=== PATIENT | female | born 1970 | race African-American/Black ===

== ENCOUNTER 2016-10-01 00:11 | Emergency (ER) | payer MEDICAID, OTHER ==
[~2016-10-01] VITALS: Ht 175.3 cm; Wt 98.0 kg
[~2016-10-01 00:11] MED LIST: AMLO-511 PO; DIVA500T52 PO
[2016-10-01] MEDS ORDERED: DiphenhydrAMINE HCL 25 MG CAPSULE PO ONE (03:00)
[2016-10-01] MEDS ORDERED: GuaiFENesin [SUGAR-FREE] 200 MG/10 ML SOLUTION UDCUP PO ONE (03:00)
[2016-10-01] MEDS ORDERED: CEPHALEXIN MONOHYDRATE 500 MG CAPSULE PO ONE (03:00)
[2016-10-01 03:18] VITALS: BP 118/78
== END 2016-10-01 03:20 | disposition home or self-care (01) ==
LOC: EMS 00:14
DX: J06.9 Acute upper respiratory infection, unspecified (principal); J40 Bronchitis, not specified as acute or chronic; F14.10 Cocaine abuse, uncomplicated; I10 Essential (primary) hypertension; F12.90 Cannabis use, unspecified, uncomplicated; F11.90 Opioid use, unspecified, uncomplicated; F19.90 Other psychoactive substance use, unspecified, uncomplicated
CPT/HCPCS: 99284

== ENCOUNTER 2016-11-13 21:03 | Inpatient (IN) | payer MEDICAID, OTHER ==
[~2016-11-13] VITALS: Ht 175.3 cm; Wt 101.6 kg
[2016-11-13] MEDS ORDERED: CLON.5 PO (21:07)
[2016-11-13] MEDS ORDERED: FLUO-191 PO (21:07)
[2016-11-13] MEDS ORDERED: CARB100 PO (21:07)
[2016-11-13] MEDS ORDERED: TRAZ-144 PO (21:07)
[2016-11-13] MEDS ORDERED: ARIP10TA14 PO (21:07)
[2016-11-13 21:32] LABS: BASOPHILS % (AUTO) 0.8 % (0.0-2.0); EOSINOPHILS % (AUTO) 2.2 % (1.0-6.0); HEMATOCRIT 41.3 % (36-46); HEMOGLOBIN 14.2 g/dL (12.0-16.0); LYMPHOCYTES # (AUTO) 2.2 K/uL (1.0-4.8); LYMPHOCYTES % (AUTO) 36.7 % (22.0-44.0); MEAN CORPUSCULAR HEMOGLOBIN 31.2 pg (26.0-34.0); MEAN CORPUSCULAR HGB CONC 34.2 G/dL (31.0-37.0); MEAN CORPUSCULAR VOLUME 91 fL (80-100); MONOCYTES # (AUTO) 0.5 K/uL (0.1-1.0); MONOCYTES % (AUTO) 9.1 % (2.0-9.0); NEUTROPHILS % (AUTO) 51.2 % (40.0-70.0); PLATELET COUNT (AUTO) 197 K/uL (150-450); RED BLOOD CELL COUNT(AUTO) 4.54 MIL/uL (4.00-5.20); RED CELL DISTRIBUTION WIDTH 12.8 % (11.5-14.5); WHITE BLOOD COUNT (AUTO) 5.9 K/uL (4.5-11.0)
[2016-11-13 21:37] LABS: ANION GAP 11 mmol/L (8-16); CALCIUM, TOTAL 9.3 mg/dL (8.8-10.5); CARBON DIOXIDE 27 mmol/L (22-29); CHLORIDE 102 mmol/L (98-107); CREATININE 0.86 mg/dL (0.60-1.30); GLOMERULAR FILTR. RATE CALC > 60 mL/min (>60); POTASSIUM 3.9 mmol/L (3.5-5.1); SODIUM SERUM 140 mmol/L (136-145); UREA NITROGEN, BLOOD 13 mg/dL (7-18)
[2016-11-13 21:43] LABS: ALANINE AMINOTRANSFERASE 42 U/L (12-78); ALBUMIN 4.3 g/dL (3.4-5.0); ASPARTATE AMINOTRANSFERASE 38 U/L (15-37); BILIRUBIN,TOTAL 0.8 mg/dL (0.1-1.0); TOTAL PROTEIN, SERUM 8.6 g/dL (6.4-8.2)
[2016-11-14] MEDS ORDERED: ClonazePAM 1 MG TABLET PO ONE (00:30)
[2016-11-14] MEDS ORDERED: QUEtiapine FUMARATE 100 MG TABLET PO ONE (00:30)
[2016-11-14] MEDS ORDERED: HALOPERIDOL 5 MG TABLET PO PRN (00:45)
[2016-11-14] MEDS ORDERED: HALOPERIDOL LACTATE 5 MG/ML VIAL IM ONE (02:30)
[2016-11-14] MEDS ORDERED: LORazepam 2 MG/ML VIAL IM ONE (02:30)
[2016-11-14] MEDS ORDERED: DiphenhydrAMINE HCL 50 MG/ML VIAL IM ONE (02:30)
[2016-11-14 07:50] VITALS: BP 120/99
[2016-11-14 08:18] VITALS: BP 125/97
[2016-11-14] MEDS ORDERED: ALBUTEROL SULFATE HFA 90 MCG/PUFF 8 GM INHALER IH PRN (09:00)
[2016-11-14] MEDS ORDERED: BENZOCAINE/MENTHOL LOZENGE [8 LOZENGES/PACKET] MM PRN (09:00)
[2016-11-14] MEDS ORDERED: IBUPROFEN 600 MG TABLET PO PRN (09:00)
[2016-11-14] MEDS ORDERED: MAG HYDROX/AL HYDROX/SIMETH ES 30 ML SUSPENSION UDCUP PO PRN ×2 (09:00→11:45)
[2016-11-14] MEDS ORDERED: CloNIDine HCL 0.1 MG TABLET PO PRN (09:00)
[2016-11-14] MEDS ORDERED: BACITRACIN 28.4 GM OINTMENT TP PRN (09:00)
[2016-11-14] MEDS ORDERED: LOPERAMIDE HCL 2 MG CAPSULE PO PRN ×2 (09:00→11:45)
[2016-11-14] MEDS ORDERED: CarBAMazepine 100 MG CHEWABLE TABLET PO SCH (09:00)
[2016-11-14] MEDS ORDERED: ACETAMINOPHEN 325 MG TABLET PO PRN ×2 (09:00→11:45)
[2016-11-14] MEDS ORDERED: MAGNESIUM HYDROXIDE SUSPENSION 30 ML UDCUP PO PRN ×2 (09:00→11:45)
[2016-11-14] MEDS ORDERED: ONDANSETRON HCL 4 MG TABLET PO PRN (09:00)
[2016-11-14] MEDS ORDERED: PETROLATUM,WHITE 71 GM JELLY TP PRN (09:00)
[2016-11-14] MEDS: MULTIVITAMINS WITH MINERALS, THERAPEUTIC TABLET PO SCH (09:14)
[2016-11-14] MEDS ORDERED: TUBERCULIN, PURIFIED PROTEIN DERIVATIVE 5 TU/0.1 ML SYG ID ONE (11:45)
[2016-11-14] MEDS ORDERED: GuaiFENesin/D-METHORPHAN [SUGAR-FREE] 200-20MG/10 ML SYRUP UDCUP PO PRN (11:45)
[2016-11-14] MEDS ORDERED: PROMETHAZINE HCL 25 MG TABLET PO PRN (11:45)
[2016-11-14] MEDS: GABAPENTIN 300 MG CAPSULE PO SCH ×3 (13:00→20:27)
[2016-11-14 16:17] VITALS: BP 135/75
[2016-11-14] MEDS: THIAMINE HCL 100 MG TABLET PO SCH (16:46)
[2016-11-14] MEDS: CarBAMazepine 200 MG TABLET PO SCH (16:46)
[2016-11-14] MEDS: LORazepam 2 MG TABLET PO PRN (16:46)
[2016-11-14] MEDS: HydrOXYzine PAMOATE 50 MG CAPSULE PO PRN (18:18)
[2016-11-14 18:58] VITALS: BP 133/70
[2016-11-14] MEDS: ARIPiprazole 15 MG TABLET PO SCH (20:27)
[2016-11-14] MEDS: ZOLPIDEM TARTRATE 10 MG TABLET PO PRN (21:09)
[2016-11-15 00:35] VITALS: BP 130/81
[2016-11-15] MEDS: LORazepam 2 MG TABLET PO PRN ×3 (00:38→16:14)
[2016-11-15] MEDS: HydrOXYzine PAMOATE 50 MG CAPSULE PO PRN (08:07)
[2016-11-15] MEDS: GABAPENTIN 300 MG CAPSULE PO SCH ×4 (08:07→20:24)
[2016-11-15] MEDS: CarBAMazepine 200 MG TABLET PO SCH ×2 (08:07→16:14)
[2016-11-15] MEDS: THIAMINE HCL 100 MG TABLET PO SCH ×2 (08:07→16:14)
[2016-11-15] MEDS: FLUoxetine HCL 20 MG CAPSULE PO SCH (08:07)
[2016-11-15] MEDS: FOLIC ACID 1 MG TABLET PO SCH (08:07)
[2016-11-15] MEDS: MULTIVITAMINS WITH MINERALS, THERAPEUTIC TABLET PO SCH (08:07)
[2016-11-15] MEDS ORDERED: MULTIVITAMINS WITH MINERALS, THERAPEUTIC TABLET PO SCH (09:00)
[2016-11-15 10:45] VITALS: BP 128/70
[2016-11-15 16:21] VITALS: BP 112/63
[2016-11-15] MEDS: ARIPiprazole 15 MG TABLET PO SCH (20:24)
[2016-11-16 08:19] VITALS: BP 132/71
[2016-11-16] MEDS: FLUoxetine HCL 20 MG CAPSULE PO SCH (08:44)
[2016-11-16] MEDS: GABAPENTIN 300 MG CAPSULE PO SCH ×4 (08:44→20:04)
[2016-11-16] MEDS: HydrOXYzine PAMOATE 50 MG CAPSULE PO PRN (08:44)
[2016-11-16] MEDS: MULTIVITAMINS WITH MINERALS, THERAPEUTIC TABLET PO SCH (08:44)
[2016-11-16] MEDS: CarBAMazepine 200 MG TABLET PO SCH ×2 (08:44→16:18)
[2016-11-16] MEDS: FOLIC ACID 1 MG TABLET PO SCH (08:44)
[2016-11-16] MEDS: THIAMINE HCL 100 MG TABLET PO SCH ×2 (08:45→16:18)
[2016-11-16] MEDS: LORazepam 2 MG TABLET PO PRN (16:19)
[2016-11-16 16:22] VITALS: BP 124/63
[2016-11-16] MEDS: ARIPiprazole 15 MG TABLET PO SCH (20:04)
[2016-11-16] MEDS: ZOLPIDEM TARTRATE 10 MG TABLET PO PRN (21:06)
[2016-11-17 08:32] VITALS: BP 132/77
[2016-11-17] MEDS: LORazepam 2 MG TABLET PO PRN (09:35)
[2016-11-17] MEDS: GABAPENTIN 300 MG CAPSULE PO SCH ×2 (09:35→13:09)
[2016-11-17] MEDS: MULTIVITAMINS WITH MINERALS, THERAPEUTIC TABLET PO SCH (09:35)
[2016-11-17] MEDS: THIAMINE HCL 100 MG TABLET PO SCH (09:36)
[2016-11-17] MEDS: FOLIC ACID 1 MG TABLET PO SCH (09:36)
[2016-11-17] MEDS: CarBAMazepine 200 MG TABLET PO SCH (09:36)
[2016-11-17] MEDS: FLUoxetine HCL 20 MG CAPSULE PO SCH (09:36)
[2016-11-17] MEDS ORDERED: CARB200T6 PO ×2 (14:35→15:01)
[2016-11-17] MEDS ORDERED: ARIP15TA3 PO ×2 (14:35→15:01)
[2016-11-17] MEDS ORDERED: GABA-531 PO ×2 (14:35→15:01)
[2016-11-17] MEDS ORDERED: NALT50 PO ×2 (14:35→15:01)
[2016-11-17] MEDS ORDERED: FLUO-191 PO (14:35)
[2016-11-18] MEDS ORDERED: NALTREXONE HCL 50 MG TABLET PO SCH (09:00)
== END 2016-11-17 16:30 | disposition home or self-care (01) | DRG 754 ==
LOC: EMS 21:05 → AHU 11-14 04:00 → B2S 11-14 15:36 → B3A 11-14 17:30
PROVIDERS: ADMIT Psychiatry & Neurology Psychiatry; ATTEND Psychiatry & Neurology Psychiatry
DX: F32.9 Major depressive disorder, single episode, unspecified (principal); R56.9 Unspecified convulsions; R45.851 Suicidal ideations; I10 Essential (primary) hypertension; F10.20 Alcohol dependence, uncomplicated; Y90.0 Blood alcohol level of less than 20 mg/100 ml; E55.9 Vitamin D deficiency, unspecified; G47.00 Insomnia, unspecified; F19.10 Other psychoactive substance abuse, uncomplicated; J44.9 Chronic obstructive pulmonary disease, unspecified
CPT/HCPCS: 99285; G0480; J1200; J1630; J2060

== ENCOUNTER 2018-02-06 10:03 | Inpatient (IN) | payer MEDICAID, OTHER ==
[~2018-02-06] VITALS: Ht 172.7 cm; Wt 82.1 kg
[~2018-02-06 10:03] MED LIST changes: -AMLO-511 PO; +ARIP15TA2 PO; +CARB200T6 PO; -DIVA500T52 PO; +FLUO-191 PO; +GABA-531 PO; +NALT50TA6 PO
[2018-02-06] MEDS: HALOPERIDOL 5 MG TABLET PO ONE ×2 (11:26→11:29)
[2018-02-06] MEDS ORDERED: LORazepam 2 MG TABLET PO ONE (11:30)
[2018-02-06 12:33] LABS: BASOPHILS % (AUTO) 1.4 % (0.0-2.0); EOSINOPHILS % (AUTO) 2.1 % (1.0-6.0); HEMATOCRIT 38.9 % (36-46); LYMPHOCYTES # (AUTO) 1.9 K/uL (1.0-4.8); LYMPHOCYTES % (AUTO) 40.2 % (22.0-44.0); MEAN CORPUSCULAR HEMOGLOBIN 30.5 pg (26.0-34.0); MEAN CORPUSCULAR HGB CONC 33.5 G/dL (31.0-37.0); MEAN CORPUSCULAR VOLUME 91 fL (80-100); MONOCYTES # (AUTO) 0.5 K/uL (0.1-1.0); MONOCYTES % (AUTO) 10.6 % (2.0-9.0); NEUTROPHILS # (AUTO) 2.2 K/uL (1.8-7.7); NEUTROPHILS % (AUTO) 45.7 % (40.0-70.0); PLATELET COUNT (AUTO) 211 K/uL (150-450); RED BLOOD CELL COUNT(AUTO) 4.28 MIL/uL (4.00-5.20); RED CELL DISTRIBUTION WIDTH 12.8 % (11.5-14.5)
[2018-02-06 12:37] LABS: ANION GAP 8 mmol/L (8-16); CALCIUM, TOTAL 8.4 mg/dL (8.8-10.5); CARBON DIOXIDE 27 mmol/L (22-29); CHLORIDE 103 mmol/L (98-107); CREATININE 0.76 mg/dL (0.60-1.30); GLOMERULAR FILTR. RATE CALC > 60 mL/min (>60); GLUCOSE,RANDOM 77 mg/dL (70-110); POTASSIUM 3.3 mmol/L (3.5-5.1); SODIUM SERUM 138 mmol/L (136-145); UREA NITROGEN, BLOOD 7 mg/dL (7-18)
[2018-02-06 12:43] LABS: ALANINE AMINOTRANSFERASE 20 U/L (12-78); ALBUMIN 4.1 g/dL (3.4-5.0); ALKALINE PHOSPHATASE 74 U/L (46-116); ASPARTATE AMINOTRANSFERASE 16 U/L (15-37); BILIRUBIN,TOTAL 0.4 mg/dL (0.1-1.0); TOTAL PROTEIN, SERUM 8.3 g/dL (6.4-8.2)
[2018-02-06 12:54] LABS: CARBAMAZEPINE (TEGRETOL) 0.1 mcg/mL (4.0-12.0)
[2018-02-06] MEDS ORDERED: ZOLPIDEM TARTRATE 10 MG TABLET PO PRN (13:30)
[2018-02-06] MEDS ORDERED: LORazepam 2 MG TABLET PO PRN (13:30)
[2018-02-06] MEDS ORDERED: HALOPERIDOL 5 MG TABLET PO PRN (13:30)
[2018-02-06 17:19] VITALS: BP 144/68
[2018-02-06] MEDS ORDERED: POTASSIUM CHLORIDE 20 MEQ ER TABLET PO ONE (18:00)
[2018-02-06] MEDS ORDERED: CloNIDine HCL 0.1 MG TABLET PO PRN (18:00)
[2018-02-06] MEDS ORDERED: MAG HYDROX/AL HYDROX/SIMETH ES 30 ML SUSPENSION UDCUP PO PRN (18:00)
[2018-02-06] MEDS ORDERED: LOPERAMIDE HCL 2 MG CAPSULE PO PRN (18:00)
[2018-02-06] MEDS ORDERED: ONDANSETRON HCL 4 MG TABLET PO PRN (18:00)
[2018-02-06] MEDS ORDERED: GuaiFENesin/D-METHORPHAN [SUGAR-FREE] 200-20MG/10 ML SYRUP UDCUP PO PRN (18:00)
[2018-02-06] MEDS ORDERED: DOCUSATE SODIUM 100 MG CAPSULE PO PRN (18:00)
[2018-02-06] MEDS ORDERED: ALBUTEROL SULFATE HFA 90 MCG/PUFF 8 GM INHALER IH PRN (18:00)
[2018-02-06] MEDS ORDERED: PETROLATUM,WHITE 71 GM JELLY TP PRN (18:00)
[2018-02-06] MEDS ORDERED: NICOTINE 14 MG/24 HOUR PATCH TD PRN (18:00)
[2018-02-06] MEDS ORDERED: MAGNESIUM HYDROXIDE SUSPENSION 30 ML UDCUP PO PRN (18:00)
[2018-02-06] MEDS ORDERED: ACETAMINOPHEN 325 MG TABLET PO PRN (18:00)
[2018-02-06] MEDS ORDERED: IBUPROFEN 400 MG TABLET PO PRN (18:00)
[2018-02-07 07:00] VITALS: BP 138/74
[2018-02-07 08:09] VITALS: BP 123/74
[2018-02-07] MEDS: FLUoxetine HCL 20 MG CAPSULE PO SCH (09:12)
[2018-02-07] MEDS: CarBAMazepine 200 MG TABLET PO SCH ×2 (09:12→17:22)
[2018-02-07 09:31] LABS: CHOL/HDL RATIO 3.4 (3.9-5.7); CHOLESTEROL 116 mg/dL (131-200); HCG,QUANTITATIVE < 1 mIU/mL (0-6); HDL CHOLESTEROL 34 mg/dL (40-60); LDL CHOL (CALC.) 76 mg/dL (0-130); POTASSIUM 3.8 mmol/L (3.5-5.1); THYROID STIMULATING HORMONE 0.57 uIU/mL (0.36-3.74); TRIGLYCERIDES 31 mg/dL (15-150)
[2018-02-07 16:03] VITALS: BP 124/73
[2018-02-07] MEDS: ARIPiprazole 15 MG TABLET PO SCH (20:00)
[2018-02-08 06:49] VITALS: BP 140/74
[2018-02-08] MEDS: TOPIRAMATE 25 MG TABLET PO SCH ×2 (08:25→17:44)
[2018-02-08] MEDS: CarBAMazepine 200 MG TABLET PO SCH ×2 (08:25→17:43)
[2018-02-08] MEDS: AmLODIPine BESYLATE 2.5 MG TABLET PO SCH (08:25)
[2018-02-08] MEDS: FLUoxetine HCL 20 MG CAPSULE PO SCH (08:25)
[2018-02-08 16:05] VITALS: BP 131/74
[2018-02-08] MEDS: ARIPiprazole 15 MG TABLET PO SCH (20:33)
[2018-02-09 06:07] VITALS: BP 128/82
[2018-02-09 08:23] VITALS: BP 140/77
[2018-02-09] MEDS: TOPIRAMATE 25 MG TABLET PO SCH ×2 (08:28→16:36)
[2018-02-09] MEDS: CarBAMazepine 200 MG TABLET PO SCH ×2 (08:28→16:36)
[2018-02-09] MEDS: FLUoxetine HCL 20 MG CAPSULE PO SCH (08:29)
[2018-02-09] MEDS: AmLODIPine BESYLATE 2.5 MG TABLET PO SCH (08:29)
[2018-02-09 16:17] VITALS: BP 135/77
[2018-02-09] MEDS: ARIPiprazole 15 MG TABLET PO SCH (20:41)
[2018-02-10 00:14] VITALS: BP 141/73
[2018-02-10 00:30] VITALS: BP 90/55
[2018-02-10 00:45] VITALS: BP 84/60
[2018-02-10 01:00] VITALS: BP 106/70
[2018-02-10 06:49] VITALS: BP 142/63
[2018-02-10] MEDS: AmLODIPine BESYLATE 2.5 MG TABLET PO SCH (09:00)
[2018-02-10] MEDS: FLUoxetine HCL 20 MG CAPSULE PO SCH (09:00)
[2018-02-10] MEDS: TOPIRAMATE 25 MG TABLET PO SCH (09:00)
[2018-02-10] MEDS: CarBAMazepine 200 MG TABLET PO SCH (09:58)
[2018-02-10] MEDS ORDERED: FLUO-191 PO (12:36)
[2018-02-10] MEDS ORDERED: ARIP15TA2 PO (12:36)
[2018-02-10] MEDS ORDERED: AMLO2.5T3 PO (12:38)
[2018-02-10] MEDS ORDERED: TOPI25 PO (12:38)
== END 2018-02-10 13:15 | disposition home or self-care (01) | DRG 750 ==
LOC: EMS 10:04 → B3A 15:43
DX: F25.1 Schizoaffective disorder, depressive type (principal); R45.851 Suicidal ideations; G40.909 Epilepsy, unspecified, not intractable, without status epilepticus; E87.6 Hypokalemia; F17.210 Nicotine dependence, cigarettes, uncomplicated; F14.90 Cocaine use, unspecified, uncomplicated; F41.9 Anxiety disorder, unspecified; F19.10 Other psychoactive substance abuse, uncomplicated; I10 Essential (primary) hypertension; Z28.21 Immunization not carried out because of patient refusal; Z91.5 Personal history of self-harm; Z88.5 Allergy status to narcotic agent; Z71.51 Drug abuse counseling and surveillance of drug abuser; F10.21 Alcohol dependence, in remission
CPT/HCPCS: 83036; 84132; 84443; 90686; 99285; G0480

== ENCOUNTER 2018-02-10 01:40 | Emergency (ER) | payer MEDICAID, OTHER ==
[~2018-02-10] VITALS: Ht 175.3 cm; Wt 72.7 kg
[2018-02-10 03:18] LABS: BASOPHILS % (AUTO) 0.2 % (0.0-2.0); EOSINOPHILS % (AUTO) 1.6 % (1.0-6.0); HEMATOCRIT 43.1 % (36-46); HEMOGLOBIN 14.5 g/dL (12.0-16.0); LYMPHOCYTES # (AUTO) 1.6 K/uL (1.0-4.8); LYMPHOCYTES % (AUTO) 28.9 % (22.0-44.0); MEAN CORPUSCULAR HEMOGLOBIN 30.8 pg (26.0-34.0); MEAN CORPUSCULAR HGB CONC 33.6 G/dL (31.0-37.0); MEAN CORPUSCULAR VOLUME 92 fL (80-100); MONOCYTES # (AUTO) 0.5 K/uL (0.1-1.0); MONOCYTES % (AUTO) 9.8 % (2.0-9.0); NEUTROPHILS # (AUTO) 3.2 K/uL (1.8-7.7); NEUTROPHILS % (AUTO) 59.5 % (40.0-70.0); PLATELET COUNT (AUTO) 193 K/uL (150-450); RED BLOOD CELL COUNT(AUTO) 4.71 MIL/uL (4.00-5.20); RED CELL DISTRIBUTION WIDTH 12.4 % (11.5-14.5)
[2018-02-10 03:20] LABS: ANION GAP 9 mmol/L (8-16); CALCIUM, TOTAL 8.9 mg/dL (8.8-10.5); CARBON DIOXIDE 25 mmol/L (22-29); CHLORIDE 101 mmol/L (98-107); CREATININE 0.78 mg/dL (0.60-1.30); GLOMERULAR FILTR. RATE CALC > 60 mL/min (>60); GLUCOSE,RANDOM 102 mg/dL (70-110); POTASSIUM 4.2 mmol/L (3.5-5.1); SODIUM SERUM 135 mmol/L (136-145); UREA NITROGEN, BLOOD 10 mg/dL (7-18)
[2018-02-10 03:32] LABS: ALANINE AMINOTRANSFERASE 18 U/L (12-78); ALBUMIN 3.6 g/dL (3.4-5.0); ALKALINE PHOSPHATASE 66 U/L (46-116); ASPARTATE AMINOTRANSFERASE 12 U/L (15-37); BILIRUBIN,TOTAL 0.2 mg/dL (0.1-1.0); HCG,QUANTITATIVE 1 mIU/mL (0-6); LIPASE 116 U/L (73-393); TOTAL PROTEIN, SERUM 7.9 g/dL (6.4-8.2)
[2018-02-10 04:39] VITALS: BP 123/78
[2018-02-10] MEDS ORDERED: ARIP15TA2 PO (12:36)
[2018-02-10] MEDS ORDERED: FLUO-191 PO (12:36)
[2018-02-10] MEDS ORDERED: TOPI25 PO (12:38)
[2018-02-10] MEDS ORDERED: AMLO2.5T3 PO (12:38)
== END 2018-02-10 06:13 | disposition home or self-care (01) ==
LOC: EMS 01:41
DX: R07.9 Chest pain, unspecified (principal); I10 Essential (primary) hypertension; F31.9 Bipolar disorder, unspecified; F20.9 Schizophrenia, unspecified; F12.90 Cannabis use, unspecified, uncomplicated; F15.90 Other stimulant use, unspecified, uncomplicated; F11.90 Opioid use, unspecified, uncomplicated; F14.90 Cocaine use, unspecified, uncomplicated; F17.210 Nicotine dependence, cigarettes, uncomplicated; Z88.5 Allergy status to narcotic agent
CPT/HCPCS: 71250; 93005; 99285

== ENCOUNTER 2018-06-02 19:09 | Inpatient (IN) | payer MEDICAID, OTHER ==
[~2018-06-02] VITALS: Ht 175.3 cm; Wt 91.0 kg
[~2018-06-02 19:09] MED LIST changes: +AMLO2.5T4 PO; -GABA-531 PO; -NALT50TA6 PO; +TOPI25 PO
[2018-06-02 20:39] LABS: BASOPHILS % (AUTO) 0.3 % (0.0-2.0); HEMATOCRIT 38.1 % (36-46); HEMOGLOBIN 12.8 g/dL (12.0-16.0); LYMPHOCYTES # (AUTO) 2.5 K/uL (1.0-4.8); LYMPHOCYTES % (AUTO) 43.1 % (22.0-44.0); MEAN CORPUSCULAR HEMOGLOBIN 30.6 pg (26.0-34.0); MEAN CORPUSCULAR HGB CONC 33.5 G/dL (31.0-37.0); MEAN CORPUSCULAR VOLUME 91 fL (80-100); MONOCYTES # (AUTO) 0.5 K/uL (0.1-1.0); NEUTROPHILS # (AUTO) 2.7 K/uL (1.8-7.7); NEUTROPHILS % (AUTO) 45.6 % (40.0-70.0); PLATELET COUNT (AUTO) 205 K/uL (150-450); RED BLOOD CELL COUNT(AUTO) 4.17 MIL/uL (4.00-5.20); RED CELL DISTRIBUTION WIDTH 12.9 % (11.5-14.5)
[2018-06-02 20:49] LABS: ANION GAP 7 mmol/L (8-16); CALCIUM, TOTAL 8.5 mg/dL (8.8-10.5); CARBON DIOXIDE 28 mmol/L (22-29); CHLORIDE 101 mmol/L (98-107); CREATININE 0.59 mg/dL (0.60-1.30); GLOMERULAR FILTR. RATE CALC > 60 mL/min (>60); GLUCOSE,RANDOM 84 mg/dL (70-110); POTASSIUM 3.9 mmol/L (3.5-5.1); SODIUM SERUM 136 mmol/L (136-145); UREA NITROGEN, BLOOD 12 mg/dL (7-18)
[2018-06-02 21:00] LABS: ALANINE AMINOTRANSFERASE 28 U/L (12-78); ALBUMIN 3.4 g/dL (3.4-5.0); ALKALINE PHOSPHATASE 46 U/L (46-116); ASPARTATE AMINOTRANSFERASE 18 U/L (15-37); BILIRUBIN,TOTAL 0.3 mg/dL (0.1-1.0); HCG,QUANTITATIVE < 1 mIU/mL (0-6); TOTAL PROTEIN, SERUM 7.4 g/dL (6.4-8.2)
[2018-06-02 21:21] LABS: AMPHET/METH SCREEN,URINE NEGATIVE (NEGATIVE); BARBITURATE SCREEN, URINE NEGATIVE (NEGATIVE); BENZODIAZEPINES SCREEN,URINE NEGATIVE (NEGATIVE); CANNABINOID SCREEN,URINE NEGATIVE (NEGATIVE); COCAINE SCREEN,URINE POSITIVE (NEGATIVE); METHADONE SCREEN, URINE NEGATIVE (NEGATIVE); OPIATE SCREEN,URINE NEGATIVE (NEGATIVE)
[2018-06-02 21:25] LABS: PHENCYCLIDINE SCREEN,URINE NEGATIVE (NEGATIVE)
[2018-06-02] MEDS ORDERED: ZOLPIDEM TARTRATE 10 MG TABLET PO PRN (23:15)
[2018-06-02] MEDS ORDERED: HALOPERIDOL 5 MG TABLET PO PRN (23:15)
[2018-06-02 23:44] LABS: HEMOGLOBIN A1C 4.8 % (4.5-6.2)
[2018-06-02 23:51] LABS: CHOL/HDL RATIO 2.8 (3.9-5.7); CHOLESTEROL 162 mg/dL (131-200); FREE T4 (FREE THYROXINE) 0.66 ng/dL (0.76-1.46); HDL CHOLESTEROL 58 mg/dL (40-60); LDL CHOL (CALC.) 93 mg/dL (0-130); THYROID STIMULATING HORMONE 3.64 uIU/mL (0.36-3.74); TRIGLYCERIDES 56 mg/dL (15-150)
[2018-06-03 00:07] LABS: APPEARANCE,URINE CLEAR (CLEAR); BILIRUBIN,URINE NEGATIVE (NEGATIVE); GLUCOSE, URINE (UA) NEGATIVE (NEGATIVE); KETONES,URINE NEGATIVE (NEGATIVE); LEUKOCYTE ESTERASE ,URINE NEGATIVE (NEGATIVE); NITRATE,URINE NEGATIVE (NEGATIVE); OCCULT BLOOD,URINE NEGATIVE (NEGATIVE); PROTEIN,URINE NEGATIVE (NEGATIVE)
[2018-06-03 00:20] VITALS: BP 132/76
[2018-06-03] MEDS ORDERED: -PHARMACY VACCINE NOTE- MISC ONE (01:00)
[2018-06-03] MEDS ORDERED: ONDANSETRON HCL 4 MG TABLET PO PRN (07:15)
[2018-06-03] MEDS ORDERED: NICOTINE 14 MG/24 HOUR PATCH TD PRN (07:15)
[2018-06-03] MEDS ORDERED: ACETAMINOPHEN 325 MG TABLET PO PRN (07:15)
[2018-06-03] MEDS ORDERED: MAG HYDROX/AL HYDROX/SIMETH ES 30 ML SUSPENSION UDCUP PO PRN (07:15)
[2018-06-03] MEDS ORDERED: IBUPROFEN 400 MG TABLET PO PRN (07:15)
[2018-06-03] MEDS ORDERED: LOPERAMIDE HCL 2 MG CAPSULE PO PRN (07:15)
[2018-06-03] MEDS ORDERED: PETROLATUM,WHITE 71 GM JELLY TP PRN (07:15)
[2018-06-03] MEDS ORDERED: DOCUSATE SODIUM 100 MG CAPSULE PO PRN (07:15)
[2018-06-03] MEDS ORDERED: CloNIDine HCL 0.1 MG TABLET PO PRN (07:15)
[2018-06-03] MEDS ORDERED: MAGNESIUM HYDROXIDE SUSPENSION 30 ML UDCUP PO PRN (07:15)
[2018-06-03] MEDS ORDERED: ALBUTEROL SULFATE HFA 90 MCG/PUFF 8 GM INHALER IH PRN (07:15)
[2018-06-03] MEDS ORDERED: GuaiFENesin/D-METHORPHAN [SUGAR-FREE] 200-20MG/10 ML SYRUP UDCUP PO PRN (07:15)
[2018-06-03 08:05] VITALS: BP 121/65
[2018-06-03] MEDS: CarBAMazepine 200 MG TABLET PO SCH ×2 (10:07→16:10)
[2018-06-03] MEDS: LORazepam 2 MG TABLET PO PRN (14:26)
[2018-06-03 16:00] VITALS: BP 128/74
[2018-06-03] MEDS: QUEtiapine FUMARATE 100 MG TABLET PO SCH (21:34)
[2018-06-04] MEDS: LEVOTHYROXINE SODIUM 25 MCG TABLET PO SCH (06:34)
[2018-06-04 08:05] VITALS: BP 134/74
[2018-06-04] MEDS: ARIPiprazole 10 MG TABLET PO SCH (10:10)
[2018-06-04] MEDS: FLUoxetine HCL 20 MG CAPSULE PO SCH (10:11)
[2018-06-04] MEDS: CarBAMazepine 200 MG TABLET PO SCH ×2 (10:11→16:35)
[2018-06-04] MEDS: LORazepam 2 MG TABLET PO PRN ×2 (10:13→16:37)
[2018-06-04] MEDS: QUEtiapine FUMARATE 100 MG TABLET PO SCH (20:18)
[2018-06-04 22:06] VITALS: BP 128/77
[2018-06-05] MEDS: LEVOTHYROXINE SODIUM 25 MCG TABLET PO SCH (06:40)
[2018-06-05 08:05] VITALS: BP 156/89
[2018-06-05] MEDS: CarBAMazepine 200 MG TABLET PO SCH ×2 (08:40→16:28)
[2018-06-05] MEDS: FLUoxetine HCL 20 MG CAPSULE PO SCH (08:41)
[2018-06-05] MEDS: ARIPiprazole 10 MG TABLET PO SCH (08:41)
[2018-06-05] MEDS ORDERED: LORazepam 2 MG/ML VIAL IM ONE (09:00)
[2018-06-05] MEDS ORDERED: DiphenhydrAMINE HCL 50 MG/ML VIAL IM ONE (09:00)
[2018-06-05] MEDS ORDERED: HALOPERIDOL LACTATE 5 MG/ML VIAL IM ONE (09:00)
[2018-06-05] MEDS ORDERED: DiphenhydrAMINE HCL 50 MG/ML VIAL ONE (09:01)
[2018-06-05] MEDS ORDERED: HALOPERIDOL LACTATE 5 MG/ML VIAL ONE (09:01)
[2018-06-05] MEDS: LORazepam 2 MG TABLET PO PRN ×2 (09:11→16:28)
[2018-06-05 16:49] VITALS: BP 117/73
[2018-06-05] MEDS: QUEtiapine FUMARATE 100 MG TABLET PO SCH (20:50)
[2018-06-06] MEDS: LEVOTHYROXINE SODIUM 25 MCG TABLET PO SCH (06:17)
[2018-06-06 09:00] VITALS: BP 142/92
[2018-06-06] MEDS: CarBAMazepine 200 MG TABLET PO SCH (09:58)
[2018-06-06] MEDS: ARIPiprazole 10 MG TABLET PO SCH (09:58)
[2018-06-06] MEDS: FLUoxetine HCL 20 MG CAPSULE PO SCH (09:59)
[2018-06-06] MEDS: LORazepam 2 MG TABLET PO PRN (11:08)
[2018-06-06] MEDS ORDERED: ARIP10TA8 PO (15:00)
[2018-06-06] MEDS ORDERED: FLUO-191 PO (15:00)
[2018-06-06] MEDS ORDERED: LEVO25TA9 PO (15:00)
[2018-06-06] MEDS ORDERED: CARB200T6 PO (15:00)
[2018-06-06] MEDS ORDERED: QUET100T PO (15:00)
== END 2018-06-06 15:25 | disposition home or self-care (01) | DRG 750 ==
LOC: EEVIPCON 19:11 → EMS 19:11 → 3EI 23:00
PROVIDERS: ADMIT Psychiatry & Neurology Psychiatry; ATTEND Psychiatry & Neurology Psychiatry
DX: F25.1 Schizoaffective disorder, depressive type (principal); G40.909 Epilepsy, unspecified, not intractable, without status epilepticus; R45.851 Suicidal ideations; A53.9 Syphilis, unspecified; E03.9 Hypothyroidism, unspecified; E55.9 Vitamin D deficiency, unspecified; F25.0 Schizoaffective disorder, bipolar type; F14.10 Cocaine abuse, uncomplicated; F17.210 Nicotine dependence, cigarettes, uncomplicated; G47.00 Insomnia, unspecified; I10 Essential (primary) hypertension; Z59.0 Homelessness; Z79.890 Hormone replacement therapy; Z79.899 Other long term (current) drug therapy; Z88.6 Allergy status to analgesic agent; Z71.51 Drug abuse counseling and surveillance of drug abuser
CPT/HCPCS: 83036; 84439; 84443; 99406; G0480; J1200; J1630; J2060

== ENCOUNTER 2018-09-13 04:00 | Emergency (ER) | payer MEDICAID ==
[~2018-09-13] VITALS: Ht 175.3 cm; Wt 97.7 kg
[~2018-09-13 04:00] MED LIST changes: -AMLO2.5T4 PO; +ARIP10TA8 PO; -ARIP15TA2 PO; +LEVO25TA9 PO; +QUET100T PO; -TOPI25 PO
[2018-09-13] MEDS ORDERED: PHENOBARB/HYOSCY/ATROPINE/SCOP 5 ML UDCUP ELIXIR PO ONE (07:30)
[2018-09-13] MEDS ORDERED: FAMOTIDINE 10 MG/ML 2 ML VIAL IVP ONE (07:30)
[2018-09-13 10:37] VITALS: BP 116/65
== END 2018-09-13 10:51 | disposition home or self-care (01) ==
LOC: EMS 04:00
DX: R10.30 Lower abdominal pain, unspecified (principal); I10 Essential (primary) hypertension; F31.9 Bipolar disorder, unspecified; F20.9 Schizophrenia, unspecified; F14.90 Cocaine use, unspecified, uncomplicated; F12.90 Cannabis use, unspecified, uncomplicated; F11.90 Opioid use, unspecified, uncomplicated; F15.90 Other stimulant use, unspecified, uncomplicated; F17.210 Nicotine dependence, cigarettes, uncomplicated; Z88.5 Allergy status to narcotic agent

== ENCOUNTER 2018-09-15 22:55 | Inpatient (IN) | payer MEDICAID, OTHER ==
[~2018-09-15] VITALS: Ht 175.3 cm; Wt 98.4 kg
[2018-09-15] MEDS ORDERED: ACETAMINOPHEN 500 MG TABLET ONE (23:07)
[2018-09-16] MEDS ORDERED: DICYCLOMINE HCL 10 MG/ML 2 ML AMP IM ONE (02:30)
[2018-09-16] MEDS ORDERED: ONDANSETRON HCL 4 MG TABLET PO ONE (02:30)
[2018-09-16 03:20] LABS: BASOPHILS % (AUTO) 0.8 % (0.0-2.0); EOSINOPHILS % (AUTO) 2.4 % (1.0-6.0); HEMATOCRIT 38.3 % (36-46); HEMOGLOBIN 12.5 g/dL (12.0-16.0); LYMPHOCYTES # (AUTO) 2.8 K/uL (1.0-4.8); LYMPHOCYTES % (AUTO) 55.3 % (22.0-44.0); MEAN CORPUSCULAR HEMOGLOBIN 30.4 pg (26.0-34.0); MEAN CORPUSCULAR HGB CONC 32.6 G/dL (31.0-37.0); MEAN CORPUSCULAR VOLUME 93 fL (80-100); MONOCYTES # (AUTO) 0.5 K/uL (0.1-1.0); NEUTROPHILS # (AUTO) 1.6 K/uL (1.8-7.7); NEUTROPHILS % (AUTO) 31.5 % (40.0-70.0); PLATELET COUNT (AUTO) 191 K/uL (150-450); RED BLOOD CELL COUNT(AUTO) 4.11 MIL/uL (4.00-5.20); RED CELL DISTRIBUTION WIDTH 12.7 % (11.5-14.5)
[2018-09-16 03:34] LABS: ALANINE AMINOTRANSFERASE 20 U/L (12-78); ALBUMIN 3.5 g/dL (3.4-5.0); ALKALINE PHOSPHATASE 49 U/L (46-116); ANION GAP 6 mmol/L (8-16); ASPARTATE AMINOTRANSFERASE 16 U/L (15-37); BILIRUBIN,TOTAL 0.5 mg/dL (0.1-1.0); CALCIUM, TOTAL 8.6 mg/dL (8.8-10.5); CARBON DIOXIDE 28 mmol/L (22-29); CHLORIDE 106 mmol/L (98-107); CREATININE 0.74 mg/dL (0.60-1.30); GLOMERULAR FILTR. RATE CALC > 60 mL/min (>60); GLUCOSE,RANDOM 81 mg/dL (70-110); HCG,QUANTITATIVE 1 mIU/mL (0-6); LIPASE 92 U/L (73-393); POTASSIUM 3.4 mmol/L (3.5-5.1); SODIUM SERUM 140 mmol/L (136-145); TOTAL PROTEIN, SERUM 7.1 g/dL (6.4-8.2)
[2018-09-16 03:40] LABS: UREA NITROGEN, BLOOD 6 mg/dL (7-18)
[2018-09-16 09:46] LABS: APPEARANCE,URINE CLOUDY (CLEAR); BILIRUBIN,URINE NEGATIVE (NEGATIVE); GLUCOSE, URINE (UA) NEGATIVE (NEGATIVE); KETONES,URINE NEGATIVE (NEGATIVE); LEUKOCYTE ESTERASE ,URINE LARGE (NEGATIVE); NITRATE,URINE NEGATIVE (NEGATIVE); OCCULT BLOOD,URINE NEGATIVE (NEGATIVE); PH,URINE 6.5 (5.0-8.0); PROTEIN,URINE NEGATIVE (NEGATIVE)
[2018-09-16 09:50] LABS: AMPHET/METH SCREEN,URINE POSITIVE (NEGATIVE); BARBITURATE SCREEN, URINE POSITIVE (NEGATIVE); BENZODIAZEPINES SCREEN,URINE NEGATIVE (NEGATIVE); CANNABINOID SCREEN,URINE NEGATIVE (NEGATIVE); COCAINE SCREEN,URINE POSITIVE (NEGATIVE); METHADONE SCREEN, URINE NEGATIVE (NEGATIVE); OPIATE SCREEN,URINE NEGATIVE (NEGATIVE); PHENCYCLIDINE SCREEN,URINE NEGATIVE (NEGATIVE)
[2018-09-16 09:54] LABS: RBC,URINE 0-2 /HPF (0-2); WBC,URINE 26-50 /HPF (0-5)
[2018-09-16 09:55] LABS: BACTERIA,URINE Moderate /HPF (None Seen); SQUAMOUS EPITHELIAL CELL,UR Many /LPF (None Seen)
[2018-09-16] MEDS ORDERED: -PHARMACY VACCINE NOTE- MISC ONE (16:45)
[2018-09-16 16:56] VITALS: BP 132/81
[2018-09-16] MEDS ORDERED: MAGNESIUM HYDROXIDE SUSPENSION 30 ML UDCUP PO PRN (17:30)
[2018-09-16] MEDS ORDERED: MAG HYDROX/AL HYDROX/SIMETH ES 30 ML SUSPENSION UDCUP PO PRN (17:30)
[2018-09-16] MEDS ORDERED: CloNIDine HCL 0.1 MG TABLET PO PRN (17:30)
[2018-09-16] MEDS ORDERED: IBUPROFEN 600 MG TABLET PO PRN (17:30)
[2018-09-16] MEDS ORDERED: BACITRACIN 28.4 GM OINTMENT TP PRN (17:30)
[2018-09-16] MEDS ORDERED: PETROLATUM,WHITE 28 GM JELLY TP PRN (17:30)
[2018-09-16] MEDS ORDERED: LOPERAMIDE HCL 2 MG CAPSULE PO PRN (17:30)
[2018-09-16] MEDS ORDERED: ACETAMINOPHEN 325 MG TABLET PO PRN (17:30)
[2018-09-16] MEDS ORDERED: BENZOCAINE/MENTHOL LOZENGE MM PRN (17:30)
[2018-09-16] MEDS ORDERED: ONDANSETRON HCL 4 MG TABLET PO PRN (17:30)
[2018-09-16] MEDS ORDERED: ALBUTEROL SULFATE HFA 90 MCG/PUFF 8 GM INHALER IH PRN (17:30)
[2018-09-16] MEDS ORDERED: LORazepam 2 MG TABLET PO PRN (17:45)
[2018-09-16] MEDS ORDERED: HALOPERIDOL 5 MG TABLET PO PRN (17:45)
[2018-09-16] MEDS ORDERED: ZOLPIDEM TARTRATE 10 MG TABLET PO PRN (17:45)
[2018-09-16] MEDS ORDERED: POTASSIUM CHLORIDE 20 MEQ ER TABLET PO ONE (18:45)
[2018-09-16 18:51] VITALS: BP 132/81
[2018-09-17 03:03] VITALS: BP 140/89
[2018-09-17 08:16] VITALS: BP 144/78
[2018-09-17] MEDS: OMEPRAZOLE 20 MG CAPSULE PO SCH (08:20)
[2018-09-17] MEDS: DOCUSATE SODIUM 100 MG CAPSULE PO SCH (08:20)
[2018-09-17] MEDS: CarBAMazepine 200 MG TABLET PO SCH (12:15)
[2018-09-17] MEDS: FLUoxetine HCL 20 MG CAPSULE PO SCH (12:15)
[2018-09-17] MEDS: ARIPiprazole 10 MG TABLET PO SCH (12:36)
[2018-09-17] MEDS: QUEtiapine FUMARATE 100 MG TABLET PO SCH ×2 (21:00→21:04)
[2018-09-18 08:11] VITALS: BP 133/77
[2018-09-18] MEDS: ARIPiprazole 10 MG TABLET PO SCH (09:00)
[2018-09-18] MEDS: FLUoxetine HCL 20 MG CAPSULE PO SCH (09:00)
[2018-09-18] MEDS: OMEPRAZOLE 20 MG CAPSULE PO SCH (09:00)
[2018-09-18] MEDS: CarBAMazepine 200 MG TABLET PO SCH (09:00)
[2018-09-18] MEDS: DOCUSATE SODIUM 100 MG CAPSULE PO SCH (09:00)
[2018-09-18 16:22] VITALS: BP 130/67
[2018-09-18] MEDS: QUEtiapine FUMARATE 100 MG TABLET PO SCH (21:00)
[2018-09-19 01:19] VITALS: BP 140/85
[2018-09-19 08:10] VITALS: BP 119/58
[2018-09-19] MEDS: ARIPiprazole 10 MG TABLET PO SCH (08:50)
[2018-09-19] MEDS: FLUoxetine HCL 20 MG CAPSULE PO SCH (08:50)
[2018-09-19] MEDS: DOCUSATE SODIUM 100 MG CAPSULE PO SCH (08:52)
[2018-09-19] MEDS: OMEPRAZOLE 20 MG CAPSULE PO SCH (08:52)
[2018-09-19] MEDS: CarBAMazepine 200 MG TABLET PO SCH (08:52)
== END 2018-09-19 14:35 | disposition home or self-care (01) | DRG 750 ==
LOC: EMS 22:56 → B3A 09-16 15:29
PROVIDERS: ADMIT Psychiatry & Neurology Psychiatry; ATTEND Psychiatry & Neurology Psychiatry
DX: F25.9 Schizoaffective disorder, unspecified (principal); G40.909 Epilepsy, unspecified, not intractable, without status epilepticus; F14.10 Cocaine abuse, uncomplicated; I10 Essential (primary) hypertension; F31.9 Bipolar disorder, unspecified; F17.210 Nicotine dependence, cigarettes, uncomplicated; R10.9 Unspecified abdominal pain; R19.7 Diarrhea, unspecified; Z88.6 Allergy status to analgesic agent; Z79.890 Hormone replacement therapy; Z79.899 Other long term (current) drug therapy; Z56.0 Unemployment, unspecified
CPT/HCPCS: 84132; 87086; 96372; J0500; Q0162

== ENCOUNTER 2018-09-29 02:28 | Emergency (ER) | payer MEDICAID, OTHER ==
[~2018-09-29] VITALS: Ht 175.3 cm; Wt 95.5 kg
[~2018-09-29 02:28] MED LIST changes: -LEVO25TA9 PO
[2018-09-29] MEDS ORDERED: KETOROLAC TROMETHAMINE 30 MG/ML VIAL IVP ONE (03:00)
[2018-09-29] MEDS ORDERED: SODIUM CHLORIDE 0.9% 1,000 ML IV ONE (03:00)
[2018-09-29] MEDS ORDERED: ONDANSETRON HCL 4 MG/2 ML VIAL IVP ONE (03:00)
[2018-09-29] MEDS ORDERED: SODIUM CHLORIDE 0.9% 2,000 ML IV ONE (03:15)
[2018-09-29] MEDS ORDERED: DIPHENOXYLATE/ATROP 2.5-0.025 MG TABLET PO ONE (03:15)
[2018-09-29] MEDS ORDERED: ACETAMINOPHEN 500 MG TABLET PO ONE (03:15)
[2018-09-29 03:27] LABS: BASOPHILS % (AUTO) 1.1 % (0.0-2.0); EOSINOPHILS % (AUTO) 2.9 % (1.0-6.0); HEMATOCRIT 36.6 % (36-46); HEMOGLOBIN 11.9 g/dL (12.0-16.0); LYMPHOCYTES # (AUTO) 2.1 K/uL (1.0-4.8); LYMPHOCYTES % (AUTO) 45.9 % (22.0-44.0); MEAN CORPUSCULAR HEMOGLOBIN 30.5 pg (26.0-34.0); MEAN CORPUSCULAR HGB CONC 32.6 G/dL (31.0-37.0); MEAN CORPUSCULAR VOLUME 94 fL (80-100); MONOCYTES # (AUTO) 0.5 K/uL (0.1-1.0); MONOCYTES % (AUTO) 10.2 % (2.0-9.0); NEUTROPHILS # (AUTO) 1.8 K/uL (1.8-7.7); NEUTROPHILS % (AUTO) 39.9 % (40.0-70.0); PLATELET COUNT (AUTO) 195 K/uL (150-450); RED BLOOD CELL COUNT(AUTO) 3.91 MIL/uL (4.00-5.20); RED CELL DISTRIBUTION WIDTH 12.5 % (11.5-14.5)
[2018-09-29 03:39] LABS: ANION GAP 9 mmol/L (8-16); CALCIUM, TOTAL 7.9 mg/dL (8.8-10.5); CARBON DIOXIDE 25 mmol/L (22-29); CHLORIDE 107 mmol/L (98-107); CREATININE 0.79 mg/dL (0.60-1.30); GLOMERULAR FILTR. RATE CALC > 60 mL/min (>60); GLUCOSE,RANDOM 86 mg/dL (70-110); POTASSIUM 3.7 mmol/L (3.5-5.1); SODIUM SERUM 141 mmol/L (136-145); UREA NITROGEN, BLOOD 16 mg/dL (7-18)
[2018-09-29 03:48] LABS: LACTIC ACID 0.6 mmol/L (0.4-2.0)
[2018-09-29 03:52] LABS: ALANINE AMINOTRANSFERASE 18 U/L (12-78); ALBUMIN 3.1 g/dL (3.4-5.0); ALKALINE PHOSPHATASE 49 U/L (46-116); ASPARTATE AMINOTRANSFERASE 11 U/L (15-37); BILIRUBIN,TOTAL 0.2 mg/dL (0.1-1.0); HCG,QUANTITATIVE 1 mIU/mL (0-6); LIPASE 103 U/L (73-393); TOTAL PROTEIN, SERUM 6.5 g/dL (6.4-8.2)
[2018-09-29 05:37] VITALS: BP 152/78
== END 2018-09-29 05:42 | disposition home or self-care (01) ==
LOC: EMS 02:30
DX: K52.9 Noninfective gastroenteritis and colitis, unspecified (principal); F25.9 Schizoaffective disorder, unspecified; F41.9 Anxiety disorder, unspecified; I10 Essential (primary) hypertension; F31.9 Bipolar disorder, unspecified; F17.210 Nicotine dependence, cigarettes, uncomplicated; F11.90 Opioid use, unspecified, uncomplicated; F12.90 Cannabis use, unspecified, uncomplicated; F14.90 Cocaine use, unspecified, uncomplicated; F15.90 Other stimulant use, unspecified, uncomplicated; Z88.5 Allergy status to narcotic agent
CPT/HCPCS: 36415; 74176; 80053; 83605; 83690; 84484; 84702; 85025; 93005; 96361; 96374; 96375; 99284; G0480; J1885; J2405; J7030

== ENCOUNTER 2018-10-05 08:35 | Inpatient (IN) | payer MEDICAID, OTHER ==
[~2018-10-05] VITALS: Ht 175.3 cm; Wt 95.5 kg
[~2018-10-05 08:35] MED LIST changes: -ARIP10TA8 PO; -CARB200T6 PO; -QUET100T PO
[2018-10-05] MEDS ORDERED: ONDANSETRON HCL 4 MG TABLET PO ONE (11:15)
[2018-10-05] MEDS ORDERED: IBUPROFEN 600 MG TABLET PO ONE (11:15)
[2018-10-05 11:45] LABS: BASOPHILS % (AUTO) 1.1 % (0.0-2.0); EOSINOPHILS % (AUTO) 3.3 % (1.0-6.0); HEMATOCRIT 39.7 % (36-46); LYMPHOCYTES # (AUTO) 1.8 K/uL (1.0-4.8); LYMPHOCYTES % (AUTO) 38.9 % (22.0-44.0); MEAN CORPUSCULAR HEMOGLOBIN 30.4 pg (26.0-34.0); MEAN CORPUSCULAR HGB CONC 32.8 G/dL (31.0-37.0); MEAN CORPUSCULAR VOLUME 93 fL (80-100); MONOCYTES # (AUTO) 0.4 K/uL (0.1-1.0); MONOCYTES % (AUTO) 9.1 % (2.0-9.0); NEUTROPHILS # (AUTO) 2.2 K/uL (1.8-7.7); NEUTROPHILS % (AUTO) 47.6 % (40.0-70.0); PLATELET COUNT (AUTO) 207 K/uL (150-450); RED BLOOD CELL COUNT(AUTO) 4.29 MIL/uL (4.00-5.20); RED CELL DISTRIBUTION WIDTH 12.6 % (11.5-14.5)
[2018-10-05 11:55] LABS: ANION GAP 6 mmol/L (8-16); CALCIUM, TOTAL 8.6 mg/dL (8.8-10.5); CARBON DIOXIDE 26 mmol/L (22-29); CHLORIDE 105 mmol/L (98-107); CREATININE 0.65 mg/dL (0.60-1.30); GLOMERULAR FILTR. RATE CALC > 60 mL/min (>60); GLUCOSE,RANDOM 103 mg/dL (70-110); POTASSIUM 3.9 mmol/L (3.5-5.1); SODIUM SERUM 137 mmol/L (136-145); UREA NITROGEN, BLOOD 12 mg/dL (7-18)
[2018-10-05 12:07] LABS: ALANINE AMINOTRANSFERASE 19 U/L (12-78); ALBUMIN 3.3 g/dL (3.4-5.0); ALKALINE PHOSPHATASE 50 U/L (46-116); ASPARTATE AMINOTRANSFERASE 13 U/L (15-37); BILIRUBIN,TOTAL 0.3 mg/dL (0.1-1.0); HCG,QUANTITATIVE < 1 mIU/mL (0-6); LIPASE 218 U/L (73-393); TOTAL PROTEIN, SERUM 7.2 g/dL (6.4-8.2)
[2018-10-05 13:00] LABS: APPEARANCE,URINE CLOUDY (CLEAR); BILIRUBIN,URINE NEGATIVE (NEGATIVE); GLUCOSE, URINE (UA) NEGATIVE (NEGATIVE); KETONES,URINE NEGATIVE (NEGATIVE); LEUKOCYTE ESTERASE ,URINE MODERATE (NEGATIVE); NITRATE,URINE NEGATIVE (NEGATIVE); OCCULT BLOOD,URINE NEGATIVE (NEGATIVE); PROTEIN,URINE NEGATIVE (NEGATIVE)
[2018-10-05 13:05] LABS: AMPHET/METH SCREEN,URINE NEGATIVE (NEGATIVE); BARBITURATE SCREEN, URINE NEGATIVE (NEGATIVE); BENZODIAZEPINES SCREEN,URINE NEGATIVE (NEGATIVE); CANNABINOID SCREEN,URINE NEGATIVE (NEGATIVE); COCAINE SCREEN,URINE POSITIVE (NEGATIVE); METHADONE SCREEN, URINE NEGATIVE (NEGATIVE); OPIATE SCREEN,URINE NEGATIVE (NEGATIVE)
[2018-10-05 13:06] LABS: PHENCYCLIDINE SCREEN,URINE NEGATIVE (NEGATIVE)
[2018-10-05] MEDS ORDERED: LORazepam 2 MG TABLET PO PRN (13:15)
[2018-10-05] MEDS ORDERED: HALOPERIDOL 5 MG TABLET PO PRN (13:15)
[2018-10-05 13:24] LABS: BACTERIA,URINE Many /HPF (None Seen); RBC,URINE None Seen /HPF (0-2)
[2018-10-05 13:25] LABS: SQUAMOUS EPITHELIAL CELL,UR Moderate /LPF (None Seen)
[2018-10-05] MEDS ORDERED: MetroNIDAZOLE 500 MG TABLET PO ONE (13:45)
[2018-10-05] MEDS ORDERED: PNEUMOCOCCAL VACCINE POLYVALENT 0.5 ML VIAL [PPSV23] IM ONE (22:00)
[2018-10-05] MEDS ORDERED: -PHARMACY VACCINE NOTE- MISC ONE (22:00)
[2018-10-05 22:42] VITALS: BP 131/78
[2018-10-06 01:11] VITALS: BP 127/73
[2018-10-06] MEDS: ZOLPIDEM TARTRATE 10 MG TABLET PO PRN (01:33)
[2018-10-06] MEDS ORDERED: ONDANSETRON HCL 4 MG TABLET PO PRN (07:45)
[2018-10-06] MEDS ORDERED: PETROLATUM,WHITE 28 GM JELLY TP PRN (07:45)
[2018-10-06] MEDS ORDERED: MAGNESIUM HYDROXIDE SUSPENSION 30 ML UDCUP PO PRN (07:45)
[2018-10-06] MEDS ORDERED: LOPERAMIDE HCL 2 MG CAPSULE PO PRN (07:45)
[2018-10-06] MEDS ORDERED: MAG HYDROX/AL HYDROX/SIMETH ES 30 ML SUSPENSION UDCUP PO PRN (07:45)
[2018-10-06] MEDS ORDERED: BENZOCAINE/MENTHOL LOZENGE MM PRN (07:45)
[2018-10-06] MEDS ORDERED: OMEPRAZOLE 20 MG CAPSULE PO PRN (07:45)
[2018-10-06] MEDS ORDERED: BACITRACIN 28.4 GM OINTMENT TP PRN (07:45)
[2018-10-06] MEDS ORDERED: ALBUTEROL SULFATE HFA 90 MCG/PUFF 8 GM INHALER IH PRN (07:45)
[2018-10-06] MEDS ORDERED: CloNIDine HCL 0.1 MG TABLET PO PRN (07:45)
[2018-10-06] MEDS ORDERED: DOCUSATE SODIUM 100 MG CAPSULE PO PRN (07:45)
[2018-10-06] MEDS: CarBAMazepine 200 MG TABLET PO SCH ×3 (09:00→09:32)
[2018-10-06 14:07] VITALS: BP 142/103
[2018-10-06 16:17] VITALS: BP 128/65
[2018-10-06] MEDS: ACETAMINOPHEN 325 MG TABLET PO PRN (16:33)
[2018-10-07 06:32] VITALS: BP 115/75
[2018-10-07 08:17] VITALS: BP 131/66
[2018-10-07 16:14] VITALS: BP 136/66
[2018-10-07] MEDS: ACETAMINOPHEN 325 MG TABLET PO PRN (16:37)
[2018-10-07] MEDS: ZOLPIDEM TARTRATE 10 MG TABLET PO PRN (20:31)
[2018-10-07] MEDS: OLANZapine 5 MG TABLET PO SCH (21:00)
[2018-10-08 02:16] VITALS: BP 140/94
[2018-10-08 08:08] VITALS: BP 131/86
[2018-10-08] MEDS: CarBAMazepine 200 MG TABLET PO SCH (09:21)
[2018-10-08] MEDS: ACETAMINOPHEN 325 MG TABLET PO PRN (14:27)
[2018-10-08 16:05] VITALS: BP 133/70
[2018-10-08] MEDS: OLANZapine 5 MG TABLET PO SCH (21:00)
[2018-10-08] MEDS: ZOLPIDEM TARTRATE 10 MG TABLET PO PRN (23:30)
[2018-10-09 02:09] VITALS: BP 140/78
[2018-10-09] MEDS: CarBAMazepine 200 MG TABLET PO SCH (09:00)
[2018-10-09] MEDS: DiphenhydrAMINE HCL 25 MG CAPSULE PO PRN (17:07)
[2018-10-09] MEDS: OLANZapine 5 MG TABLET PO SCH (20:14)
[2018-10-09 21:16] VITALS: BP 134/87
[2018-10-10 08:20] VITALS: BP 121/76
[2018-10-10] MEDS: CarBAMazepine 200 MG TABLET PO SCH (08:59)
[2018-10-10 16:15] VITALS: BP 127/73
[2018-10-10] MEDS: DiphenhydrAMINE HCL 25 MG CAPSULE PO PRN (16:37)
[2018-10-10] MEDS: OLANZapine 5 MG TABLET PO SCH (20:28)
[2018-10-11 03:20] VITALS: BP 131/74
[2018-10-11 08:10] VITALS: BP 126/71
[2018-10-11] MEDS: DiphenhydrAMINE HCL 25 MG CAPSULE PO PRN (08:42)
[2018-10-11] MEDS ORDERED: OLAN5TAB27 PO (12:00)
== END 2018-10-11 13:51 | disposition home or self-care (01) | DRG 754 ==
LOC: EMS 08:37 → B2X 20:30 → B3A 10-06 18:30
PROVIDERS: ADMIT Psychiatry & Neurology Psychiatry; ATTEND Psychiatry & Neurology Psychiatry
DX: F32.9 Major depressive disorder, single episode, unspecified (principal); F20.9 Schizophrenia, unspecified; R45.851 Suicidal ideations; G40.909 Epilepsy, unspecified, not intractable, without status epilepticus; F17.200 Nicotine dependence, unspecified, uncomplicated; I10 Essential (primary) hypertension
CPT/HCPCS: 87081; 87086; G0480; Q0162

== ENCOUNTER 2018-11-10 18:07 | Emergency (ER) | payer OTHER ==
[~2018-11-10] VITALS: Ht 175.3 cm; Wt 100.0 kg
[~2018-11-10 18:07] MED LIST changes: -FLUO-191 PO; +OLAN5TAB27 PO
[2018-11-10 20:34] VITALS: BP 143/83
[2018-11-10] MEDS: MUPIROCIN CALCIUM 2% 15 GM CREAM TP ONE (21:06)
== END 2018-11-10 21:08 | disposition home or self-care (01) ==
LOC: EMS 18:09
DX: L01.00 Impetigo, unspecified (principal); F31.9 Bipolar disorder, unspecified; F20.9 Schizophrenia, unspecified; I10 Essential (primary) hypertension; F12.90 Cannabis use, unspecified, uncomplicated; F19.90 Other psychoactive substance use, unspecified, uncomplicated; F14.90 Cocaine use, unspecified, uncomplicated; F13.10 Sedative, hypnotic or anxiolytic abuse, uncomplicated; Z88.5 Allergy status to narcotic agent

== ENCOUNTER 2018-12-19 10:53 | Inpatient (IN) | payer MEDICAID ==
[~2018-12-19] VITALS: Ht 175.3 cm; Wt 101.2 kg
[2018-12-19 14:22] VITALS: BP 140/74
[2018-12-19] MEDS ORDERED: LORazepam 2 MG TABLET PO PRN (14:30)
[2018-12-19] MEDS ORDERED: HALOPERIDOL 5 MG TABLET PO PRN (14:30)
[2018-12-19] MEDS ORDERED: ZOLPIDEM TARTRATE 10 MG TABLET PO PRN (14:30)
[2018-12-19 16:00] VITALS: BP 129/75
[2018-12-19] MEDS: DiphenhydrAMINE HCL 25 MG CAPSULE PO PRN (17:26)
[2018-12-19] MEDS: OLANZapine 5 MG TABLET PO SCH (20:20)
[2018-12-19] MEDS ORDERED: GuaiFENesin/D-METHORPHAN [SUGAR-FREE] 200-20MG/10 ML SYRUP UDCUP PO PRN (21:00)
[2018-12-20 00:15] VITALS: BP 106/64
[2018-12-20 08:10] LABS: BASOPHILS % (AUTO) 0.8 % (0.0-2.0); EOSINOPHILS % (AUTO) 5.3 % (1.0-6.0); HEMATOCRIT 37.1 % (36-46); HEMOGLOBIN 12.2 g/dL (12.0-16.0); LYMPHOCYTES # (AUTO) 1.9 K/uL (1.0-4.8); LYMPHOCYTES % (AUTO) 48.5 % (22.0-44.0); MEAN CORPUSCULAR HEMOGLOBIN 30.6 pg (26.0-34.0); MEAN CORPUSCULAR HGB CONC 32.9 G/dL (31.0-37.0); MEAN CORPUSCULAR VOLUME 93 fL (80-100); MONOCYTES # (AUTO) 0.5 K/uL (0.1-1.0); MONOCYTES % (AUTO) 12.3 % (2.0-9.0); NEUTROPHILS # (AUTO) 1.3 K/uL (1.8-7.7); NEUTROPHILS % (AUTO) 33.1 % (40.0-70.0); PLATELET COUNT (AUTO) 187 K/uL (150-450); RED BLOOD CELL COUNT(AUTO) 3.99 MIL/uL (4.00-5.20); RED CELL DISTRIBUTION WIDTH 12.9 % (11.5-14.5)
[2018-12-20 08:40] LABS: ALANINE AMINOTRANSFERASE 16 U/L (12-78); ALBUMIN 3.1 g/dL (3.4-5.0); ALKALINE PHOSPHATASE 57 U/L (46-116); ANION GAP 9 mmol/L (8-16); ASPARTATE AMINOTRANSFERASE 15 U/L (15-37); BILIRUBIN,TOTAL 0.4 mg/dL (0.1-1.0); CALCIUM, TOTAL 8.2 mg/dL (8.8-10.5); CARBON DIOXIDE 27 mmol/L (22-29); CHLORIDE 101 mmol/L (98-107); CHOL/HDL RATIO 3.3 (3.9-5.7); CHOLESTEROL 114 mg/dL (131-200); CREATININE 0.63 mg/dL (0.60-1.30); GLOMERULAR FILTR. RATE CALC > 60 mL/min (>60); GLUCOSE,RANDOM 83 mg/dL (70-110); HCG,QUANTITATIVE < 1 mIU/mL (0-6); HDL CHOLESTEROL 35 mg/dL (40-60); LDL CHOL (CALC.) 74 mg/dL (0-130); SODIUM SERUM 137 mmol/L (136-145); THYROID STIMULATING HORMONE 0.93 uIU/mL (0.36-3.74); TOTAL PROTEIN, SERUM 6.7 g/dL (6.4-8.2); TRIGLYCERIDES 23 mg/dL (15-150); UREA NITROGEN, BLOOD 10 mg/dL (7-18)
[2018-12-20 08:41] VITALS: BP 128/65
[2018-12-20] MEDS: CarBAMazepine 200 MG TABLET PO SCH (09:00)
[2018-12-20] MEDS: DiphenhydrAMINE HCL 25 MG CAPSULE PO PRN ×2 (09:00→20:12)
[2018-12-20 16:06] VITALS: BP 117/67
[2018-12-20] MEDS: OLANZapine 5 MG TABLET PO SCH (20:12)
[2018-12-21 00:23] VITALS: BP 120/81
[2018-12-21 08:09] VITALS: BP 100/63
[2018-12-21] MEDS: DiphenhydrAMINE HCL 25 MG CAPSULE PO PRN (15:45)
[2018-12-21 16:09] VITALS: BP 104/65
[2018-12-21] MEDS: OLANZapine 5 MG TABLET PO SCH (20:09)
[2018-12-22 03:10] VITALS: BP 110/68
[2018-12-22 08:04] VITALS: BP 122/62
[2018-12-22] MEDS: CarBAMazepine 200 MG TABLET PO SCH ×2 (08:11→08:19)
[2018-12-22 16:38] VITALS: BP 133/92
[2018-12-22 18:10] VITALS: BP 121/65
[2018-12-22] MEDS: OLANZapine 5 MG TABLET PO SCH (20:16)
[2018-12-23 01:18] VITALS: BP 129/86
[2018-12-23 08:26] VITALS: BP 115/72
[2018-12-23] MEDS: CarBAMazepine 200 MG TABLET PO SCH (08:42)
[2018-12-23] MEDS: DiphenhydrAMINE HCL 25 MG CAPSULE PO PRN (15:44)
[2018-12-23 16:01] VITALS: BP 125/66
[2018-12-23] MEDS: OLANZapine 10 MG TABLET PO SCH (20:16)
[2018-12-24 06:02] VITALS: BP 120/72
[2018-12-24 08:07] VITALS: BP 114/67
[2018-12-24] MEDS: CarBAMazepine 200 MG TABLET PO SCH ×2 (09:00→09:15)
[2018-12-24 16:10] VITALS: BP 133/58
[2018-12-24] MEDS: DiphenhydrAMINE HCL 25 MG CAPSULE PO PRN (20:42)
[2018-12-24] MEDS: OLANZapine 10 MG TABLET PO SCH (20:42)
[2018-12-25 00:05] VITALS: BP 131/80
[2018-12-25 08:21] VITALS: BP 107/61
[2018-12-25] MEDS: CarBAMazepine 200 MG TABLET PO SCH (08:26)
[2018-12-25] MEDS ORDERED: OLAN10TA3 PO (13:52)
[2018-12-25] MEDS ORDERED: CARB200T6 PO (13:52)
[2018-12-25 16:00] VITALS: BP 115/64
== END 2018-12-25 16:10 | disposition home or self-care (01) | DRG 750 ==
LOC: B2S 14:30
PROVIDERS: ADMIT Psychiatry & Neurology Psychiatry; ATTEND Psychiatry & Neurology Psychiatry
DX: F25.9 Schizoaffective disorder, unspecified (principal); G40.909 Epilepsy, unspecified, not intractable, without status epilepticus; R45.851 Suicidal ideations; F32.9 Major depressive disorder, single episode, unspecified; I10 Essential (primary) hypertension; F17.200 Nicotine dependence, unspecified, uncomplicated; Z88.5 Allergy status to narcotic agent
CPT/HCPCS: 84439; 84443

== ENCOUNTER 2020-05-03 15:27 | Inpatient (IN) | payer MEDICAID, OTHER ==
[~2020-05-03] VITALS: Ht 175.3 cm; Wt 120.0 kg
[~2020-05-03 15:27] MED LIST changes: +CARB200T6 PO; +OLAN10TA3 PO; -OLAN5TAB27 PO
[2020-05-03] MEDS ORDERED: BENZONATATE 100 MG CAPSULE PO ONE (16:30)
[2020-05-03 17:27] LABS: COVID AG,FIA SOURCE NASOPHARYNGEAL
[2020-05-03] MEDS ORDERED: LURASIDONE HCL 20 MG TABLET PO PRN (17:45)
[2020-05-03] MEDS ORDERED: MAGNESIUM HYDROXIDE SUSPENSION 30 ML UDCUP PO PRN (17:45)
[2020-05-03] MEDS ORDERED: LOPERAMIDE HCL 2 MG CAPSULE PO PRN (17:45)
[2020-05-03] MEDS ORDERED: HydrOXYzine PAMOATE 50 MG CAPSULE PO PRN (17:45)
[2020-05-03] MEDS ORDERED: GuaiFENesin/D-METHORPHAN [SUGAR-FREE] 200-20MG/10 ML SYRUP UDCUP PO PRN (17:45)
[2020-05-03] MEDS ORDERED: TUBERCULIN, PURIFIED PROTEIN DERIVATIVE 5 TU/0.1 ML SYRINGE ID ONE (17:45)
[2020-05-03] MEDS ORDERED: PROMETHAZINE HCL 25 MG TABLET PO PRN (17:45)
[2020-05-03] MEDS ORDERED: LURASIDONE HCL 40 MG TABLET PO ONE (17:45)
[2020-05-03] MEDS ORDERED: ZOLPIDEM TARTRATE 10 MG TABLET PO PRN (17:45)
[2020-05-03] MEDS ORDERED: MAG HYDROX/AL HYDROX/SIMETH ES 30 ML SUSPENSION UDCUP PO PRN (17:45)
[2020-05-03 18:10] LABS: BASOPHILS % (AUTO) 1.1 % (0.0-2.0); EOSINOPHILS % (AUTO) 2.8 % (1.0-6.0); HEMATOCRIT 36.5 % (36-46); HEMOGLOBIN 11.9 g/dL (12.0-16.0); LYMPHOCYTES # (AUTO) 1.9 K/uL (1.0-4.8); LYMPHOCYTES % (AUTO) 32.9 % (22.0-44.0); MEAN CORPUSCULAR HEMOGLOBIN 30.1 pg (26.0-34.0); MEAN CORPUSCULAR HGB CONC 32.7 G/dL (31.0-37.0); MEAN CORPUSCULAR VOLUME 92 fL (80-100); MONOCYTES # (AUTO) 0.5 K/uL (0.1-1.0); MONOCYTES % (AUTO) 9.2 % (2.0-9.0); NEUTROPHILS # (AUTO) 3.1 K/uL (1.8-7.7); PLATELET COUNT (AUTO) 186 K/uL (150-450); RED BLOOD CELL COUNT(AUTO) 3.96 MIL/uL (4.00-5.20); RED CELL DISTRIBUTION WIDTH 13.2 % (11.5-14.5)
[2020-05-03 18:40] LABS: ANION GAP 6 mmol/L (8-16); CALCIUM, TOTAL 8.2 mg/dL (8.8-10.5); CARBON DIOXIDE 27 mmol/L (22-29); CHLORIDE 104 mmol/L (98-107); CREATININE 0.63 mg/dL (0.60-1.30); GLOMERULAR FILTR. RATE CALC > 60 mL/min (>60); GLUCOSE,RANDOM 101 mg/dL (70-110); POTASSIUM 4.2 mmol/L (3.5-5.1); SODIUM SERUM 137 mmol/L (136-145); UREA NITROGEN, BLOOD 13 mg/dL (7-18)
[2020-05-03 18:47] LABS: ALANINE AMINOTRANSFERASE 20 U/L (12-78); ALBUMIN 2.9 g/dL (3.4-5.0); ALKALINE PHOSPHATASE 65 U/L (46-116); ASPARTATE AMINOTRANSFERASE 13 U/L (15-37); BILIRUBIN,TOTAL 0.1 mg/dL (0.1-1.0); TOTAL PROTEIN, SERUM 6.9 g/dL (6.4-8.2)
[2020-05-03] MEDS: THIAMINE 100 MG TABLET PO SCH (21:29)
[2020-05-03] MEDS: DIVALPROEX SODIUM 500 MG ER TABLET PO SCH (21:30)
[2020-05-03] MEDS ORDERED: PNEUMOCOCCAL VACCINE POLYVALENT 0.5 ML VIAL [PPSV23] IM ONE (22:00)
[2020-05-03] MEDS ORDERED: INFLUENZA VIRUS VACCINE QVS 2020-21 (6MO+)/PF 60 MCG/0.5 ML SYRINGE IM ONE (22:00)
[2020-05-03 22:23] VITALS: BP 132/80
[2020-05-04 06:54] LABS: HEMOGLOBIN A1C 5.1 % (3.8-5.6)
[2020-05-04 07:11] LABS: CHOL/HDL RATIO 4.2 (3.9-5.7); FREE T4 (FREE THYROXINE) 0.99 ng/dL (0.76-1.46); THYROID STIMULATING HORMONE 0.77 uIU/mL (0.36-3.74)
[2020-05-04 08:00] VITALS: BP 136/84
[2020-05-04] MEDS: OLANZapine 5 MG RAPDIS TABLET PO PRN (08:14)
[2020-05-04] MEDS: LORazepam 2 MG TABLET PO PRN (08:14)
[2020-05-04] MEDS: FOLIC ACID 1 MG TABLET PO SCH (08:14)
[2020-05-04] MEDS: FLUoxetine HCL 20 MG CAPSULE PO SCH (08:14)
[2020-05-04] MEDS: THIAMINE 100 MG TABLET PO SCH ×2 (08:14→17:42)
[2020-05-04] MEDS: MULTIVITAMINS WITH MINERALS, THERAPEUTIC TABLET PO SCH (08:14)
[2020-05-04] MEDS: NYSTATIN 30 GM CREAM TP SCH ×2 (08:15→17:41)
[2020-05-04] MEDS: NALTREXONE HCL 50 MG TABLET PO SCH (08:15)
[2020-05-04] MEDS: OMEGA-3/DHA/EPA/FISH OIL 1,000 MG CAPSULE PO SCH (08:15)
[2020-05-04 16:00] VITALS: BP 133/70
[2020-05-04] MEDS ORDERED: LURASIDONE HCL 40 MG TABLET PO SCH (17:30)
[2020-05-04] MEDS: DIVALPROEX SODIUM 500 MG ER TABLET PO SCH (20:24)
[2020-05-04] MEDS: OLANZapine 5 MG RAPDIS TABLET PO SCH (20:28)
[2020-05-05 08:00] VITALS: BP 141/90
[2020-05-05] MEDS: MULTIVITAMINS WITH MINERALS, THERAPEUTIC TABLET PO SCH (08:49)
[2020-05-05] MEDS: THIAMINE 100 MG TABLET PO SCH ×2 (08:49→16:09)
[2020-05-05] MEDS: FLUoxetine HCL 20 MG CAPSULE PO SCH (08:49)
[2020-05-05] MEDS: NALTREXONE HCL 50 MG TABLET PO SCH (08:49)
[2020-05-05] MEDS: OMEGA-3/DHA/EPA/FISH OIL 1,000 MG CAPSULE PO SCH (08:49)
[2020-05-05] MEDS: FOLIC ACID 1 MG TABLET PO SCH (08:49)
[2020-05-05] MEDS: NYSTATIN 30 GM CREAM TP SCH ×2 (12:27→16:48)
[2020-05-05] MEDS: LORazepam 2 MG TABLET PO PRN (16:09)
[2020-05-05 16:10] VITALS: BP 121/67
[2020-05-05] MEDS: DIVALPROEX SODIUM 500 MG ER TABLET PO SCH (20:27)
[2020-05-05] MEDS: OLANZapine 5 MG RAPDIS TABLET PO SCH (20:27)
[2020-05-06 08:00] VITALS: BP 115/63
[2020-05-06] MEDS: OMEGA-3/DHA/EPA/FISH OIL 1,000 MG CAPSULE PO SCH (08:23)
[2020-05-06] MEDS: THIAMINE 100 MG TABLET PO SCH ×2 (08:23→16:09)
[2020-05-06] MEDS: FOLIC ACID 1 MG TABLET PO SCH (08:23)
[2020-05-06] MEDS: MULTIVITAMINS WITH MINERALS, THERAPEUTIC TABLET PO SCH (08:23)
[2020-05-06] MEDS: FLUoxetine HCL 20 MG CAPSULE PO SCH (08:23)
[2020-05-06] MEDS: NALTREXONE HCL 50 MG TABLET PO SCH (08:24)
[2020-05-06] MEDS: ASPIRIN 325 MG TABLET PO SCH (08:24)
[2020-05-06] MEDS: NYSTATIN 30 GM CREAM TP SCH ×2 (11:23→16:15)
[2020-05-06 16:08] VITALS: BP 113/79
[2020-05-06 19:32] LABS: INR 1.1 (0.9-1.1); PROTHROMBIN TIME 11.2 SEC (9.4-11.6)
[2020-05-06] MEDS: DIVALPROEX SODIUM 500 MG ER TABLET PO SCH (20:08)
[2020-05-06] MEDS: OLANZapine 5 MG RAPDIS TABLET PO SCH (20:09)
[2020-05-07 08:00] VITALS: BP 136/85
[2020-05-07] MEDS: FOLIC ACID 1 MG TABLET PO SCH (08:30)
[2020-05-07] MEDS: MULTIVITAMINS WITH MINERALS, THERAPEUTIC TABLET PO SCH (08:30)
[2020-05-07] MEDS: FLUoxetine HCL 20 MG CAPSULE PO SCH (08:30)
[2020-05-07] MEDS: LORazepam 2 MG TABLET PO PRN (08:30)
[2020-05-07] MEDS: OMEGA-3/DHA/EPA/FISH OIL 1,000 MG CAPSULE PO SCH (08:30)
[2020-05-07] MEDS: ASPIRIN 325 MG TABLET PO SCH (08:30)
[2020-05-07] MEDS: NALTREXONE HCL 50 MG TABLET PO SCH (08:30)
[2020-05-07] MEDS: OLANZapine 5 MG RAPDIS TABLET PO PRN (08:30)
[2020-05-07] MEDS: NYSTATIN 30 GM CREAM TP SCH ×2 (08:31→16:07)
[2020-05-07] MEDS: THIAMINE 100 MG TABLET PO SCH ×2 (08:32→16:07)
[2020-05-07 16:19] VITALS: BP 120/60
[2020-05-07] MEDS: OLANZapine 5 MG RAPDIS TABLET PO SCH (20:40)
[2020-05-07] MEDS: MELATONIN 5 MG TABLET PO SCH (20:40)
[2020-05-07] MEDS: DIVALPROEX SODIUM 500 MG ER TABLET PO SCH (20:40)
[2020-05-08 08:00] VITALS: BP 151/99
[2020-05-08] MEDS: FOLIC ACID 1 MG TABLET PO SCH (08:08)
[2020-05-08] MEDS: OMEGA-3/DHA/EPA/FISH OIL 1,000 MG CAPSULE PO SCH (08:08)
[2020-05-08] MEDS: NALTREXONE HCL 50 MG TABLET PO SCH (08:08)
[2020-05-08] MEDS: MULTIVITAMINS WITH MINERALS, THERAPEUTIC TABLET PO SCH (08:08)
[2020-05-08] MEDS: THIAMINE 100 MG TABLET PO SCH ×2 (08:08→15:53)
[2020-05-08] MEDS: ASPIRIN 325 MG TABLET PO SCH (08:09)
[2020-05-08] MEDS: FLUoxetine HCL 20 MG CAPSULE PO SCH (08:09)
[2020-05-08] MEDS: NYSTATIN 30 GM CREAM TP SCH ×2 (12:27→15:53)
[2020-05-08 16:00] VITALS: BP 111/65
[2020-05-08 18:10] LABS: COVID AG,FIA SOURCE NASAL SWAB
[2020-05-08] MEDS: DIVALPROEX SODIUM 500 MG ER TABLET PO SCH (20:21)
[2020-05-08] MEDS: MELATONIN 5 MG TABLET PO SCH (20:21)
[2020-05-08] MEDS: OLANZapine 10 MG RAPDIS TABLET PO SCH (20:21)
[2020-05-08] MEDS ORDERED: OLANZapine 10 MG RAPDIS TABLET PO SCH (21:00)
[2020-05-09 08:02] VITALS: BP 104/52
[2020-05-09] MEDS: NALTREXONE HCL 50 MG TABLET PO SCH (08:14)
[2020-05-09] MEDS: FOLIC ACID 1 MG TABLET PO SCH (08:14)
[2020-05-09] MEDS: FLUoxetine HCL 20 MG CAPSULE PO SCH (08:14)
[2020-05-09] MEDS: OMEGA-3/DHA/EPA/FISH OIL 1,000 MG CAPSULE PO SCH (08:14)
[2020-05-09] MEDS: THIAMINE 100 MG TABLET PO SCH ×2 (08:15→15:54)
[2020-05-09] MEDS: ASPIRIN 325 MG TABLET PO SCH (08:15)
[2020-05-09] MEDS: MULTIVITAMINS WITH MINERALS, THERAPEUTIC TABLET PO SCH (08:15)
[2020-05-09] MEDS: NYSTATIN 30 GM CREAM TP SCH ×2 (09:00→15:54)
[2020-05-09 16:00] VITALS: BP 156/76
[2020-05-09] MEDS: OLANZapine 10 MG RAPDIS TABLET PO SCH (20:06)
[2020-05-09] MEDS: DIVALPROEX SODIUM 500 MG ER TABLET PO SCH (20:06)
[2020-05-09] MEDS: MELATONIN 5 MG TABLET PO SCH (20:06)
[2020-05-10 08:00] VITALS: BP 114/63
[2020-05-10] MEDS: THIAMINE 100 MG TABLET PO SCH ×2 (08:01→15:56)
[2020-05-10] MEDS: FLUoxetine HCL 20 MG CAPSULE PO SCH (08:02)
[2020-05-10] MEDS: OMEGA-3/DHA/EPA/FISH OIL 1,000 MG CAPSULE PO SCH (08:02)
[2020-05-10] MEDS: NYSTATIN 30 GM CREAM TP SCH ×2 (08:02→15:55)
[2020-05-10] MEDS: ASPIRIN 325 MG TABLET PO SCH (08:02)
[2020-05-10] MEDS: MULTIVITAMINS WITH MINERALS, THERAPEUTIC TABLET PO SCH (08:02)
[2020-05-10] MEDS: FOLIC ACID 1 MG TABLET PO SCH (08:02)
[2020-05-10] MEDS: NALTREXONE HCL 50 MG TABLET PO SCH (08:02)
[2020-05-10 17:02] VITALS: BP 131/76
[2020-05-10] MEDS: DIVALPROEX SODIUM 500 MG ER TABLET PO SCH (20:17)
[2020-05-10] MEDS: MELATONIN 5 MG TABLET PO SCH (20:18)
[2020-05-10] MEDS: OLANZapine 10 MG RAPDIS TABLET PO SCH (20:18)
[2020-05-11 08:00] VITALS: BP 159/71
[2020-05-11 09:33] VITALS: BP 121/61
[2020-05-11] MEDS: MULTIVITAMINS WITH MINERALS, THERAPEUTIC TABLET PO SCH (10:08)
[2020-05-11] MEDS: ASPIRIN 325 MG TABLET PO SCH (10:08)
[2020-05-11] MEDS: OMEGA-3/DHA/EPA/FISH OIL 1,000 MG CAPSULE PO SCH (10:08)
[2020-05-11] MEDS: THIAMINE 100 MG TABLET PO SCH ×2 (10:08→16:28)
[2020-05-11] MEDS: FLUoxetine HCL 20 MG CAPSULE PO SCH (10:08)
[2020-05-11] MEDS: FOLIC ACID 1 MG TABLET PO SCH (10:08)
[2020-05-11] MEDS: NALTREXONE HCL 50 MG TABLET PO SCH (10:09)
[2020-05-11] MEDS: NYSTATIN 30 GM CREAM TP SCH ×2 (10:09→16:28)
[2020-05-11 16:22] VITALS: BP 123/63
[2020-05-11] MEDS: ACETAMINOPHEN 325 MG TABLET PO PRN (16:27)
[2020-05-11] MEDS: DIVALPROEX SODIUM 500 MG ER TABLET PO SCH (20:25)
[2020-05-11] MEDS: OLANZapine 10 MG RAPDIS TABLET PO SCH (20:26)
[2020-05-11] MEDS: MELATONIN 5 MG TABLET PO SCH (20:26)
[2020-05-12 08:00] VITALS: BP 146/75
[2020-05-12] MEDS: THIAMINE 100 MG TABLET PO SCH ×2 (08:54→16:25)
[2020-05-12] MEDS: MULTIVITAMINS WITH MINERALS, THERAPEUTIC TABLET PO SCH (08:54)
[2020-05-12] MEDS: FOLIC ACID 1 MG TABLET PO SCH (08:54)
[2020-05-12] MEDS: ASPIRIN 325 MG TABLET PO SCH (08:55)
[2020-05-12] MEDS: NALTREXONE HCL 50 MG TABLET PO SCH (08:55)
[2020-05-12] MEDS: FLUoxetine HCL 20 MG CAPSULE PO SCH (08:55)
[2020-05-12] MEDS: OMEGA-3/DHA/EPA/FISH OIL 1,000 MG CAPSULE PO SCH (08:55)
[2020-05-12] MEDS: NYSTATIN 30 GM CREAM TP SCH ×2 (08:55→16:25)
[2020-05-12 16:17] VITALS: BP 131/76
[2020-05-12] MEDS: OLANZapine 10 MG RAPDIS TABLET PO SCH (20:01)
[2020-05-12] MEDS: DIVALPROEX SODIUM 500 MG ER TABLET PO SCH (20:01)
[2020-05-12] MEDS: MELATONIN 5 MG TABLET PO SCH (20:01)
[2020-05-12] MEDS: ACETAMINOPHEN 325 MG TABLET PO PRN (20:13)
[2020-05-13 08:00] VITALS: BP 130/67
[2020-05-13] MEDS: FOLIC ACID 1 MG TABLET PO SCH (08:14)
[2020-05-13] MEDS: NALTREXONE HCL 50 MG TABLET PO SCH (08:14)
[2020-05-13] MEDS: FLUoxetine HCL 20 MG CAPSULE PO SCH (08:14)
[2020-05-13] MEDS: OMEGA-3/DHA/EPA/FISH OIL 1,000 MG CAPSULE PO SCH (08:14)
[2020-05-13] MEDS: ASPIRIN 325 MG TABLET PO SCH (08:15)
[2020-05-13] MEDS: MULTIVITAMINS WITH MINERALS, THERAPEUTIC TABLET PO SCH (08:15)
[2020-05-13] MEDS: NYSTATIN 30 GM CREAM TP SCH ×2 (08:15→16:02)
[2020-05-13 16:22] VITALS: BP 144/67
[2020-05-13] MEDS: OLANZapine 10 MG RAPDIS TABLET PO SCH (20:12)
[2020-05-13] MEDS: MELATONIN 5 MG TABLET PO SCH (20:12)
[2020-05-13] MEDS: DIVALPROEX SODIUM 500 MG ER TABLET PO SCH (20:12)
[2020-05-14 08:23] VITALS: BP 138/93
[2020-05-14] MEDS: NYSTATIN 30 GM CREAM TP SCH ×2 (08:41→17:02)
[2020-05-14] MEDS: NALTREXONE HCL 50 MG TABLET PO SCH (08:41)
[2020-05-14] MEDS: MULTIVITAMINS WITH MINERALS, THERAPEUTIC TABLET PO SCH (08:41)
[2020-05-14] MEDS: OMEGA-3/DHA/EPA/FISH OIL 1,000 MG CAPSULE PO SCH (08:41)
[2020-05-14] MEDS: FLUoxetine HCL 20 MG CAPSULE PO SCH (08:41)
[2020-05-14] MEDS: ASPIRIN 325 MG TABLET PO SCH (08:41)
[2020-05-14 17:23] VITALS: BP 130/74
[2020-05-14] MEDS: OLANZapine 10 MG RAPDIS TABLET PO SCH (20:21)
[2020-05-14] MEDS: MELATONIN 5 MG TABLET PO SCH (20:21)
[2020-05-14] MEDS: DIVALPROEX SODIUM 500 MG ER TABLET PO SCH (20:21)
[2020-05-15 08:08] VITALS: BP 146/83
[2020-05-15] MEDS: MULTIVITAMINS WITH MINERALS, THERAPEUTIC TABLET PO SCH (09:57)
[2020-05-15] MEDS: OMEGA-3/DHA/EPA/FISH OIL 1,000 MG CAPSULE PO SCH (09:57)
[2020-05-15] MEDS: NALTREXONE HCL 50 MG TABLET PO SCH (09:57)
[2020-05-15] MEDS: NYSTATIN 30 GM CREAM TP SCH ×2 (09:57→16:14)
[2020-05-15] MEDS: FLUoxetine HCL 20 MG CAPSULE PO SCH (09:57)
[2020-05-15] MEDS: ASPIRIN 325 MG TABLET PO SCH (09:57)
[2020-05-15 13:45] LABS: COVID AG,FIA SOURCE NASOPHARYNGEAL
[2020-05-15 16:18] VITALS: BP 139/72
[2020-05-15] MEDS ORDERED: FLUO-191 PO (18:34)
[2020-05-15] MEDS ORDERED: NALT50TA PO (18:34)
[2020-05-15] MEDS ORDERED: MELA5TAB3 PO (18:34)
[2020-05-15] MEDS ORDERED: OMEG-135 PO (18:34)
[2020-05-15] MEDS ORDERED: DIVA-80 PO (18:34)
[2020-05-15] MEDS ORDERED: OLAN10TA22 PO (18:34)
[2020-05-15] MEDS: OLANZapine 10 MG RAPDIS TABLET PO SCH (20:23)
[2020-05-15] MEDS: MELATONIN 5 MG TABLET PO SCH (20:24)
[2020-05-15] MEDS: DIVALPROEX SODIUM 500 MG ER TABLET PO SCH (20:24)
[2020-05-16 08:00] VITALS: BP 132/76
[2020-05-16] MEDS: MULTIVITAMINS WITH MINERALS, THERAPEUTIC TABLET PO SCH (08:05)
[2020-05-16] MEDS: NALTREXONE HCL 50 MG TABLET PO SCH (08:05)
[2020-05-16] MEDS: OMEGA-3/DHA/EPA/FISH OIL 1,000 MG CAPSULE PO SCH (08:05)
[2020-05-16] MEDS: NYSTATIN 30 GM CREAM TP SCH (08:05)
[2020-05-16] MEDS: FLUoxetine HCL 20 MG CAPSULE PO SCH (08:06)
[2020-05-16] MEDS: ASPIRIN 325 MG TABLET PO SCH (08:06)
== END 2020-05-16 14:30 | disposition home or self-care (01) | DRG 750 ==
LOC: EMS 15:27 → 3EC 17:45 → UNDOADMIN 21:12
PROVIDERS: ADMIT Psychiatry & Neurology Psychiatry; ATTEND Psychiatry & Neurology Psychiatry
PROC: 3E02340 Introduction of Influenza Vaccine into Muscle, Percutaneous Approach (ICD-10-PCS; principal; 2020-05-03)
PROC: 3E0234Z Introduction of Serum, Toxoid and Vaccine into Muscle, Percutaneous Approach (ICD-10-PCS; 2020-05-03)
DX: F25.1 Schizoaffective disorder, depressive type (principal); R45.851 Suicidal ideations; Z20.822 Contact with and (suspected) exposure to COVID-19; Z86.718 Personal history of other venous thrombosis and embolism; F17.210 Nicotine dependence, cigarettes, uncomplicated; G40.909 Epilepsy, unspecified, not intractable, without status epilepticus; F15.90 Other stimulant use, unspecified, uncomplicated; F12.90 Cannabis use, unspecified, uncomplicated; F14.90 Cocaine use, unspecified, uncomplicated; I10 Essential (primary) hypertension; Z88.8 Allergy status to other drugs, medicaments and biological substances; Z23 Encounter for immunization; F10.21 Alcohol dependence, in remission
CPT/HCPCS: 83036; 84439; 84443; 86592; 87426; 90686; 93970; 99291; G0480

== ENCOUNTER 2021-03-13 17:09 | Inpatient (IN) | payer MEDICAID ==
[~2021-03-13] VITALS: Ht 175.3 cm; Wt 110.9 kg
[~2021-03-13 17:09] MED LIST changes: -CARB200T6 PO; +DIVA-80 PO; +FLUO-191 PO; +MELA5TAB40 PO; +NALT50TA PO; +OLAN10TA22 PO; -OLAN10TA3 PO; +OMEG-135 PO
[2021-03-13 18:58] LABS: BASOPHILS % (AUTO) 0.9 % (0.0-2.0); EOSINOPHILS % (AUTO) 1.7 % (1.0-6.0); HEMATOCRIT 38.7 % (36-46); HEMOGLOBIN 12.6 g/dL (12.0-16.0); LYMPHOCYTES # (AUTO) 2.5 K/uL (1.0-4.8); MEAN CORPUSCULAR HEMOGLOBIN 29.4 pg (26.0-34.0); MEAN CORPUSCULAR HGB CONC 32.5 G/dL (31.0-37.0); MEAN CORPUSCULAR VOLUME 91 fL (80-100); MONOCYTES # (AUTO) 0.7 K/uL (0.1-1.0); MONOCYTES % (AUTO) 11.2 % (2.0-9.0); NEUTROPHILS # (AUTO) 3.2 K/uL (1.8-7.7); NEUTROPHILS % (AUTO) 48.2 % (40.0-70.0); PLATELET COUNT (AUTO) 222 K/uL (150-450); RED BLOOD CELL COUNT(AUTO) 4.27 MIL/uL (4.00-5.20); RED CELL DISTRIBUTION WIDTH 13.7 % (11.5-14.5)
[2021-03-13 19:08] LABS: ANION GAP 8 mmol/L (8-16); CALCIUM, TOTAL 8.6 mg/dL (8.8-10.5); CARBON DIOXIDE 29 mmol/L (22-29); CHLORIDE 103 mmol/L (98-107); CREATININE 0.71 mg/dL (0.60-1.30); GLOMERULAR FILTR. RATE CALC > 60 mL/min (>60); GLUCOSE,RANDOM 82 mg/dL (70-110); POTASSIUM 3.4 mmol/L (3.5-5.1); SODIUM SERUM 140 mmol/L (136-145); UREA NITROGEN, BLOOD 9 mg/dL (7-18)
[2021-03-13 19:15] LABS: ALANINE AMINOTRANSFERASE 24 U/L (12-78); ALBUMIN 3.7 g/dL (3.4-5.0); ALKALINE PHOSPHATASE 77 U/L (46-116); ASPARTATE AMINOTRANSFERASE 15 U/L (15-37); BILIRUBIN,TOTAL 0.5 mg/dL (0.1-1.0); TOTAL PROTEIN, SERUM 8.2 g/dL (6.4-8.2)
[2021-03-13 19:18] LABS: VALPROIC ACID < 3 mcg/mL (50-100)
[2021-03-13] MEDS ORDERED: ZOLPIDEM TARTRATE 10 MG TABLET PO PRN (20:00)
[2021-03-13] MEDS ORDERED: HALOPERIDOL 5 MG TABLET PO PRN (20:00)
[2021-03-13 20:29] LABS: COVID AG,FIA SOURCE NASOPHARYNGEAL
[2021-03-13] MEDS: POTASSIUM CHLORIDE 20 MEQ ER TABLET PO ONE ×2 (20:49→21:48)
[2021-03-14] MEDS ORDERED: -PHARMACY VACCINE NOTE- MISC ONE (00:15)
[2021-03-14] MEDS ORDERED: INFLUENZA VIRUS VACCINE QVS 2021-22 (6MO+)/PF 60 MCG/0.5 ML SYRINGE IM. ONE (00:15)
[2021-03-14 01:03] VITALS: BP 132/63
[2021-03-14] MEDS ORDERED: LOPERAMIDE HCL 2 MG CAPSULE PO PRN (07:15)
[2021-03-14] MEDS ORDERED: MAG HYDROX/AL HYDROX/SIMETH ES 30 ML SUSPENSION UDCUP PO PRN (07:15)
[2021-03-14] MEDS ORDERED: BACITRACIN 28 GM OINTMENT TP PRN (07:15)
[2021-03-14] MEDS ORDERED: ALBUTEROL SULFATE HFA 90 MCG/PUFF 8 GM INHALER IH PRN (07:15)
[2021-03-14] MEDS ORDERED: IBUPROFEN 600 MG TABLET PO PRN (07:15)
[2021-03-14] MEDS ORDERED: PETROLATUM,WHITE 28 GM JELLY TP PRN (07:15)
[2021-03-14] MEDS ORDERED: BENZOCAINE/MENTHOL LOZENGE PO PRN (07:15)
[2021-03-14] MEDS ORDERED: ONDANSETRON HCL 4 MG TABLET PO PRN (07:15)
[2021-03-14] MEDS ORDERED: CloNIDine HCL 0.1 MG TABLET PO PRN (07:15)
[2021-03-14] MEDS ORDERED: OMEPRAZOLE 20 MG CAPSULE PO PRN (07:15)
[2021-03-14] MEDS ORDERED: MAGNESIUM HYDROXIDE SUSPENSION 30 ML UDCUP PO PRN (07:15)
[2021-03-14] MEDS ORDERED: DOCUSATE SODIUM 100 MG CAPSULE PO PRN (07:15)
[2021-03-14 12:43] VITALS: BP 129/76
[2021-03-14] MEDS: OMEGA-3/DHA/EPA/FISH OIL 1,000 MG CAPSULE PO SCH ×2 (12:43→13:38)
[2021-03-14] MEDS: FLUoxetine HCL 20 MG CAPSULE PO SCH (13:29)
[2021-03-14] MEDS: LORazepam 2 MG TABLET PO PRN ×2 (13:36→17:50)
[2021-03-14] MEDS ORDERED: DiphenhydrAMINE HCL 25 MG CAPSULE PO ONE (15:15)
[2021-03-14 16:09] VITALS: BP 116/64
[2021-03-14] MEDS: COLLOIDAL OATMEAL/DIMETH 227 GM LOTION TP SCH (17:00)
[2021-03-14] MEDS ORDERED: OLANZapine 10 MG TABLET PO SCH (21:00)
[2021-03-14] MEDS: DIVALPROEX SODIUM 500 MG ER TABLET PO SCH (21:00)
[2021-03-15 00:33] VITALS: BP 118/66
[2021-03-15 08:28] VITALS: BP 130/73
[2021-03-15] MEDS: COLLOIDAL OATMEAL/DIMETH 227 GM LOTION TP SCH (08:42)
[2021-03-15] MEDS: FLUoxetine HCL 20 MG CAPSULE PO SCH (08:42)
[2021-03-15] MEDS: LORazepam 2 MG TABLET PO PRN ×2 (08:46→17:00)
[2021-03-15] MEDS: OMEGA-3/DHA/EPA/FISH OIL 1,000 MG CAPSULE PO SCH (08:46)
[2021-03-15 16:15] VITALS: BP 119/82
[2021-03-15] MEDS: OLANZapine 10 MG TABLET PO SCH (20:02)
[2021-03-15] MEDS: DIVALPROEX SODIUM 500 MG ER TABLET PO SCH (20:02)
[2021-03-16 00:44] VITALS: BP 126/84
[2021-03-16 08:14] VITALS: BP 121/70
[2021-03-16] MEDS: FLUoxetine HCL 20 MG CAPSULE PO SCH (09:07)
[2021-03-16] MEDS: OMEGA-3/DHA/EPA/FISH OIL 1,000 MG CAPSULE PO SCH (09:07)
[2021-03-16] MEDS: OLANZapine 10 MG TABLET PO SCH (20:01)
[2021-03-16] MEDS: DIVALPROEX SODIUM 500 MG ER TABLET PO SCH (20:01)
[2021-03-17 06:36] VITALS: BP 126/84
[2021-03-17] MEDS: FLUoxetine HCL 20 MG CAPSULE PO SCH (09:00)
[2021-03-17] MEDS: OMEGA-3/DHA/EPA/FISH OIL 1,000 MG CAPSULE PO SCH (09:00)
[2021-03-17 16:11] VITALS: BP 161/78
[2021-03-17 16:28] VITALS: BP 161/78
[2021-03-17] MEDS: DIVALPROEX SODIUM 500 MG ER TABLET PO SCH (20:13)
[2021-03-17] MEDS: OLANZapine 10 MG TABLET PO SCH (20:14)
[2021-03-18 03:13] VITALS: BP 128/82
[2021-03-18] MEDS: FLUoxetine HCL 20 MG CAPSULE PO SCH (08:48)
[2021-03-18 08:49] VITALS: BP 126/82
[2021-03-18] MEDS: LORazepam 2 MG TABLET PO PRN (08:52)
[2021-03-18] MEDS: OMEGA-3/DHA/EPA/FISH OIL 1,000 MG CAPSULE PO SCH (08:52)
[2021-03-18 16:10] VITALS: BP 184/108
[2021-03-18 20:18] VITALS: BP 140/86
[2021-03-18] MEDS: ACETAMINOPHEN 325 MG TABLET PO PRN (20:20)
[2021-03-18] MEDS: DIVALPROEX SODIUM 500 MG ER TABLET PO SCH (21:00)
[2021-03-18] MEDS: OLANZapine 10 MG TABLET PO SCH (21:12)
[2021-03-19 01:38] VITALS: BP 136/81
[2021-03-19 08:32] VITALS: BP 141/89
[2021-03-19] MEDS: FLUoxetine HCL 20 MG CAPSULE PO SCH (08:50)
[2021-03-19] MEDS: OMEGA-3/DHA/EPA/FISH OIL 1,000 MG CAPSULE PO SCH (08:51)
[2021-03-19] MEDS: ACETAMINOPHEN 325 MG TABLET PO PRN (17:32)
[2021-03-19 17:33] VITALS: BP 142/90
[2021-03-19 17:34] VITALS: BP 146/86
[2021-03-19] MEDS: OLANZapine 10 MG TABLET PO SCH (20:37)
[2021-03-19] MEDS: DIVALPROEX SODIUM 500 MG ER TABLET PO SCH (20:37)
[2021-03-20 00:34] VITALS: BP 142/82
[2021-03-20 08:06] LABS: ANION GAP 5 mmol/L (8-16); CALCIUM, TOTAL 8.3 mg/dL (8.8-10.5); CARBON DIOXIDE 30 mmol/L (22-29); CHLORIDE 103 mmol/L (98-107); CHOL/HDL RATIO 4.5 (3.9-5.7); CHOLESTEROL 140 mg/dL (131-200); CREATININE 0.68 mg/dL (0.60-1.30); GLOMERULAR FILTR. RATE CALC > 60 mL/min (>60); GLUCOSE,RANDOM 120 mg/dL (70-110); HDL CHOLESTEROL 31 mg/dL (40-60); LDL CHOL (CALC.) 89 mg/dL (0-130); POTASSIUM 3.7 mmol/L (3.5-5.1); SODIUM SERUM 138 mmol/L (136-145); THYROID STIMULATING HORMONE 3.31 uIU/mL (0.36-3.74); TRIGLYCERIDES 98 mg/dL (15-150); UREA NITROGEN, BLOOD 13 mg/dL (7-18)
[2021-03-20 08:38] VITALS: BP 122/79
[2021-03-20] MEDS: OMEGA-3/DHA/EPA/FISH OIL 1,000 MG CAPSULE PO SCH (09:00)
[2021-03-20] MEDS: FLUoxetine HCL 20 MG CAPSULE PO SCH (09:12)
[2021-03-20] MEDS ORDERED: OLAN10TA74 PO (11:19)
[2021-03-20] MEDS ORDERED: FLUO20CA36 PO (11:19)
== END 2021-03-20 13:32 | disposition home or self-care (01) | DRG 750 ==
LOC: EMS 17:09 → EDUNIT# 17:09 → B3A 21:00
PROVIDERS: ADMIT Psychiatry & Neurology Psychiatry; ATTEND Psychiatry & Neurology Psychiatry
DX: F20.0 Paranoid schizophrenia (principal); G40.909 Epilepsy, unspecified, not intractable, without status epilepticus; E66.9 Obesity, unspecified; F32.A Depression, unspecified; G47.00 Insomnia, unspecified; I10 Essential (primary) hypertension; J44.9 Chronic obstructive pulmonary disease, unspecified; K59.00 Constipation, unspecified; F14.90 Cocaine use, unspecified, uncomplicated; F17.210 Nicotine dependence, cigarettes, uncomplicated; Z20.822 Contact with and (suspected) exposure to COVID-19; Z79.899 Other long term (current) drug therapy; Z88.5 Allergy status to narcotic agent; Z68.36 Body mass index [BMI] 36.0-36.9, adult; Z71.6 Tobacco abuse counseling
CPT/HCPCS: 80048; 80053; 80061; 80164; 84443; 85025; 99285; G0480

== ENCOUNTER 2022-02-16 19:50 | Emergency (ER) | payer MEDICAID ==
[~2022-02-16] VITALS: Ht 175.3 cm; Wt 109.1 kg
[~2022-02-16 19:50] MED LIST changes: -FLUO-191 PO; +FLUO20CA36 PO; -MELA5TAB40 PO; -NALT50TA PO; -OLAN10TA22 PO; +OLAN10TA74 PO; -OMEG-135 PO
[2022-02-16] MEDS ORDERED: FLUoxetine HCL 20 MG CAPSULE PO ONE (21:45)
[2022-02-16 22:10] LABS: BASOPHILS % (AUTO) 0.2 % (0.0-2.0); EOSINOPHILS % (AUTO) 3.6 % (1.0-6.0); HEMOGLOBIN 12.3 g/dL (12.0-16.0); LYMPHOCYTES # (AUTO) 2.6 K/uL (1.0-4.8); LYMPHOCYTES % (AUTO) 42.9 % (22.0-44.0); MEAN CORPUSCULAR HEMOGLOBIN 29.4 pg (26.0-34.0); MEAN CORPUSCULAR HGB CONC 32.4 G/dL (31.0-37.0); MEAN CORPUSCULAR VOLUME 91 fL (80-100); MONOCYTES # (AUTO) 0.6 K/uL (0.1-1.0); MONOCYTES % (AUTO) 9.5 % (2.0-9.0); NEUTROPHILS # (AUTO) 2.7 K/uL (1.8-7.7); NEUTROPHILS % (AUTO) 43.8 % (40.0-70.0); PLATELET COUNT (AUTO) 215 K/uL (150-450); RED BLOOD CELL COUNT(AUTO) 4.19 MIL/uL (4.00-5.20); RED CELL DISTRIBUTION WIDTH 13.4 % (11.5-14.5)
[2022-02-16 22:21] LABS: ANION GAP 4 mmol/L (8-16); CALCIUM, TOTAL 8.6 mg/dL (8.8-10.5); CARBON DIOXIDE 33 mmol/L (22-29); CHLORIDE 102 mmol/L (98-107); GLOMERULAR FILTR. RATE CALC > 60 mL/min (>60); GLUCOSE,RANDOM 111 mg/dL (70-110); POTASSIUM 3.6 mmol/L (3.5-5.1); SODIUM SERUM 139 mmol/L (136-145); UREA NITROGEN, BLOOD 23 mg/dL (7-18)
[2022-02-16 22:27] LABS: ALANINE AMINOTRANSFERASE 24 U/L (12-78); ALBUMIN 3.5 g/dL (3.4-5.0); ALKALINE PHOSPHATASE 70 U/L (46-116); ASPARTATE AMINOTRANSFERASE 15 U/L (15-37); BILIRUBIN,TOTAL 0.2 mg/dL (0.1-1.0); LIPASE 144 U/L (73-393); TOTAL PROTEIN, SERUM 7.4 g/dL (6.4-8.2)
[2022-02-16] MEDS ORDERED: FLUO20CA36 PO (23:04)
[2022-02-16] MEDS ORDERED: DOXY-354 PO (23:04)
[2022-02-16] MEDS ORDERED: HYDR30CR39 TP (23:04)
[2022-02-16] MEDS ORDERED: ACET-66 PO (23:04)
[2022-02-16 23:19] VITALS: BP 137/82
== END 2022-02-17 03:08 | disposition home or self-care (01) ==
LOC: EMS 19:50
DX: R07.89 Other chest pain (principal); L30.9 Dermatitis, unspecified; F31.9 Bipolar disorder, unspecified; F25.1 Schizoaffective disorder, depressive type; R45.851 Suicidal ideations; R42 Dizziness and giddiness; I10 Essential (primary) hypertension; F10.20 Alcohol dependence, uncomplicated; F12.90 Cannabis use, unspecified, uncomplicated; F14.90 Cocaine use, unspecified, uncomplicated; F11.90 Opioid use, unspecified, uncomplicated; Z86.718 Personal history of other venous thrombosis and embolism; Z86.69 Personal history of other diseases of the nervous system and sense organs; Z98.890 Other specified postprocedural states; Z87.19 Personal history of other diseases of the digestive system; Z88.5 Allergy status to narcotic agent
CPT/HCPCS: 99285; 71045; 80053; 83690; 84484; 85025; 36415; 93005; G0480

== ENCOUNTER 2023-02-25 13:03 | Emergency (ER) | payer MEDICAID ==
[~2023-02-25] VITALS: Ht 175.3 cm; Wt 118.2 kg
[~2023-02-25 13:03] MED LIST changes: -DIVA-80 PO; +DIVA500T69 PO; +LURA40TA4 PO; +MELA5TAB40 PO; +NALT50TA PO; -OLAN10TA74 PO; +OMEG-135 PO; +VARE1TAB25 PO
[2023-02-25 13:25] VITALS: TEMP 98.5
[2023-02-25] MEDS ORDERED: DIPHENOXYLATE/ATROP 2.5-0.025 MG TABLET PO ONE (14:15)
[2023-02-25] MEDS ORDERED: ACETAMINOPHEN 500 MG TABLET PO ONE (14:15)
[2023-02-25] MEDS ORDERED: SODIUM CHLORIDE 0.9% 1,000 ML IV ONE (14:15)
[2023-02-25 14:59] LABS: EOSINOPHILS % (AUTO) 3.4 % (1.0-6.0); HEMATOCRIT 37.7 % (36-46); HEMOGLOBIN 12.3 g/dL (12.0-16.0); LYMPHOCYTES # (AUTO) 2.4 K/uL (1.0-4.8); MEAN CORPUSCULAR HEMOGLOBIN 29.7 pg (26.0-34.0); MEAN CORPUSCULAR HGB CONC 32.7 G/dL (31.0-37.0); MEAN CORPUSCULAR VOLUME 91 fL (80-100); MONOCYTES # (AUTO) 0.7 K/uL (0.1-1.0); MONOCYTES % (AUTO) 9.7 % (2.0-9.0); NEUTROPHILS # (AUTO) 3.5 K/uL (1.8-7.7); NEUTROPHILS % (AUTO) 50.9 % (40.0-70.0); PLATELET COUNT (AUTO) 179 K/uL (150-450); RED BLOOD CELL COUNT(AUTO) 4.15 MIL/uL (4.00-5.20); RED CELL DISTRIBUTION WIDTH 13.6 % (11.5-14.5); WHITE BLOOD COUNT (AUTO) 6.9 K/uL (4.5-11.0)
[2023-02-25 15:06] LABS: ANION GAP 7 mmol/L (8-16); CALCIUM, TOTAL 9.1 mg/dL (8.8-10.5); CARBON DIOXIDE 28 mmol/L (22-29); CHLORIDE 103 mmol/L (98-107); CREATININE 0.57 mg/dL (0.60-1.30); GLOMERULAR FILTR. RATE CALC > 60 mL/min (>60); GLUCOSE,RANDOM 105 mg/dL (70-110); POTASSIUM 4.4 mmol/L (3.5-5.1); SODIUM SERUM 138 mmol/L (136-145); UREA NITROGEN, BLOOD 10 mg/dL (7-18)
[2023-02-25 15:11] LABS: ALANINE AMINOTRANSFERASE 23 U/L (12-78); ALBUMIN 3.1 g/dL (3.4-5.0); ALKALINE PHOSPHATASE 82 U/L (46-116); ASPARTATE AMINOTRANSFERASE 25 U/L (15-37); BILIRUBIN,TOTAL 0.2 mg/dL (0.1-1.0); LIPASE 49 U/L (16-77); TOTAL PROTEIN, SERUM 7.7 g/dL (6.4-8.2)
[2023-02-25] MEDS ORDERED: HYDR30CR3 TP (16:41)
[2023-02-25] MEDS ORDERED: DIPH-654 PO (16:41)
[2023-02-25] MEDS ORDERED: METR500 PO (16:41)
[2023-02-25] MEDS ORDERED: ACET-66 PO (16:41)
[2023-02-25 17:00] VITALS: BP 133/87; PULSE 84; RESP 18
== END 2023-02-25 17:20 | disposition home or self-care (01) ==
LOC: EMS 13:35
DX: K52.9 Noninfective gastroenteritis and colitis, unspecified (principal); F25.1 Schizoaffective disorder, depressive type; F10.20 Alcohol dependence, uncomplicated; F31.9 Bipolar disorder, unspecified; I10 Essential (primary) hypertension; F17.210 Nicotine dependence, cigarettes, uncomplicated; F14.90 Cocaine use, unspecified, uncomplicated; F12.90 Cannabis use, unspecified, uncomplicated; F11.90 Opioid use, unspecified, uncomplicated; Z98.890 Other specified postprocedural states; Z88.5 Allergy status to narcotic agent
CPT/HCPCS: 99283; 96360; 80053; 83690; 85025; 36415; J7030

== ENCOUNTER 2024-11-20 20:47 | Emergency (ER) | payer MEDICAID, OTHER ==
[~2024-11-20] VITALS: Ht 167.6 cm; Wt 86.4 kg
[~2024-11-20 20:47] MED LIST changes: +ACET-66 PO; +DIPH-1130 PO; +FLUO-418 PO; -FLUO20CA36 PO; +HYDR30CR3 TP; +METR500 PO; -NALT50TA PO; +NALT50TA6 PO
[2024-11-20 22:10] VITALS: TEMP 97.705256
[2024-11-20 22:46] LABS: PLATELET COUNT (AUTO) 188 K/uL (150-450); RED BLOOD CELL COUNT(AUTO) 3.92 MIL/uL (4.00-5.20); RED CELL DISTRIBUTION WIDTH 13.9 % (11.5-14.5); WHITE BLOOD COUNT (AUTO) 6.3 K/uL (4.5-11.0)
[2024-11-20 22:55] LABS: CALCIUM, TOTAL 8.4 mg/dL (8.8-10.5); CREATININE 0.69 mg/dL (0.60-1.30); GLOMERULAR FILTR. RATE CALC > 60 mL/min (>60); GLUCOSE,RANDOM 110 mg/dL (70-110); SODIUM SERUM 142 mmol/L (136-145); UREA NITROGEN, BLOOD 11 mg/dL (7-18)
[2024-11-20 23:01] LABS: ASPARTATE AMINOTRANSFERASE 17.0 U/L (15-37); TOTAL PROTEIN, SERUM 7.0 g/dL (6.4-8.2)
[2024-11-20 23:03] LABS: TROPONIN I-HIGH SENSITIVITY 10 ng/L (<51)
[2024-11-20] MEDS: ACETAMINOPHEN 500 MG TABLET PO ONE (23:23)
[2024-11-21 00:25] VITALS: BP 147/87; PULSE 74; RESP 18; O2SAT 99
[2024-11-21] MEDS ORDERED: POLY17PO62 PO (01:27)
[2024-11-21] MEDS ORDERED: HYDR25TA2 PO (01:27)
== END 2024-11-21 01:34 | disposition home or self-care (01) ==
LOC: EMS 20:47
DX: G56.01 Carpal tunnel syndrome, right upper limb (principal); K59.00 Constipation, unspecified; I10 Essential (primary) hypertension; F31.9 Bipolar disorder, unspecified; F20.9 Schizophrenia, unspecified; Z88.5 Allergy status to narcotic agent; Z86.718 Personal history of other venous thrombosis and embolism; Z79.899 Other long term (current) drug therapy
CPT/HCPCS: 99285; 71045; 80048; 80076; 83690; 84484; 85025; 36415; 74018; 93005; 29125; G0480

== ENCOUNTER 2025-01-10 13:26 | Emergency (ER) | payer OTHER ==
[~2025-01-10] VITALS: Ht 175.3 cm; Wt 120.5 kg
[~2025-01-10 13:26] MED LIST changes: +HYDR25TA2 PO; +POLY17PO62 PO
[2025-01-10 13:41] VITALS: BP 132/70; PULSE 71; RESP 22; TEMP 97.5; O2SAT 98
== END 2025-01-10 17:05 | disposition left against medical advice (07) ==
LOC: EMS 13:29
DX: G89.29 Other chronic pain (principal); M54.2 Cervicalgia; F20.9 Schizophrenia, unspecified; F31.9 Bipolar disorder, unspecified; I10 Essential (primary) hypertension; F10.20 Alcohol dependence, uncomplicated; F17.210 Nicotine dependence, cigarettes, uncomplicated; Z86.718 Personal history of other venous thrombosis and embolism; Z88.5 Allergy status to narcotic agent; Z79.899 Other long term (current) drug therapy
CPT/HCPCS: 99281; Z7502

== ENCOUNTER 2025-01-11 14:40 | Emergency (ER) | payer OTHER ==
[~2025-01-11] VITALS: Ht 175.3 cm; Wt 120.0 kg
[2025-01-11 14:45] VITALS: TEMP 97.5
[2025-01-11 15:45] VITALS: BP 129/78; PULSE 71; RESP 17; O2SAT 96
[2025-01-11] MEDS: OxyCODONE HCL/ACETAMINOPHEN 5-325 MG TABLET PO ONE (16:08)
[2025-01-11] MEDS: KETOROLAC TROMETHAMINE 30 MG/ML VIAL IM ONE (16:08)
== END 2025-01-11 16:30 | disposition home or self-care (01) ==
LOC: EMS 14:40
DX: G89.29 Other chronic pain (principal); M54.9 Dorsalgia, unspecified; F20.9 Schizophrenia, unspecified; F31.9 Bipolar disorder, unspecified; I10 Essential (primary) hypertension; F10.20 Alcohol dependence, uncomplicated; M79.604 Pain in right leg; M79.605 Pain in left leg; F17.210 Nicotine dependence, cigarettes, uncomplicated; Z98.890 Other specified postprocedural states; Z86.718 Personal history of other venous thrombosis and embolism; Z88.5 Allergy status to narcotic agent; Z79.899 Other long term (current) drug therapy
CPT/HCPCS: 99283; 96372; J1885

== ENCOUNTER 2025-01-26 15:10 | Emergency (ER) | payer OTHER ==
[~2025-01-26] VITALS: Ht 175.3 cm; Wt 113.0 kg
[2025-01-26 15:18] VITALS: TEMP 98.2
[2025-01-26] MEDS ORDERED: HYDR-4061 PO (15:22)
[2025-01-26] MEDS ORDERED: DIPH25CA53 PO (15:22)
[2025-01-26] MEDS ORDERED: BACL10TA PO (15:22)
[2025-01-26] MEDS: LORazepam 2 MG/ML VIAL IM ONE (17:58)
[2025-01-26] MEDS: OxyCODONE HCL/ACETAMINOPHEN 5-325 MG TABLET PO ONE (17:59)
[2025-01-26] MEDS: KETOROLAC TROMETHAMINE 60 MG/2 ML VIAL IM ONE (17:59)
[2025-01-26] MEDS ORDERED: OXYC-38 PO (18:47)
[2025-01-26] MEDS ORDERED: METH-659 PO (18:47)
[2025-01-26 19:17] VITALS: BP 123/74; PULSE 78; RESP 18; O2SAT 90
== END 2025-01-26 19:26 | disposition home or self-care (01) ==
LOC: EMS 15:10
DX: G89.29 Other chronic pain (principal); M54.50 Low back pain, unspecified; F41.9 Anxiety disorder, unspecified; F25.1 Schizoaffective disorder, depressive type; F10.20 Alcohol dependence, uncomplicated; F31.9 Bipolar disorder, unspecified; I10 Essential (primary) hypertension; F17.210 Nicotine dependence, cigarettes, uncomplicated; Z98.890 Other specified postprocedural states; Z88.5 Allergy status to narcotic agent; Z86.718 Personal history of other venous thrombosis and embolism; Z79.899 Other long term (current) drug therapy
CPT/HCPCS: 99284; 96372; J1885; J2060

== ENCOUNTER 2025-02-09 10:45 | Emergency (ER) | payer OTHER ==
[~2025-02-09] VITALS: Ht 175.3 cm; Wt 118.2 kg
[~2025-02-09 10:45] MED LIST changes: -ACET-66 PO; +BACL10TA PO; -DIPH-1130 PO; +DIPH25CA53 PO; -DIVA500T69 PO; +HYDR-4061 PO; -HYDR30CR3 TP; -LURA40TA4 PO; -MELA5TAB40 PO; +METH-659 PO; -METR500 PO; -NALT50TA6 PO; -OMEG-135 PO; +OXYC-38 PO; -POLY17PO62 PO; -VARE1TAB25 PO
[2025-02-09 10:52] VITALS: TEMP 97.9
[2025-02-09 10:55] VITALS: BP 125/79; PULSE 79; RESP 22; O2SAT 97
[2025-02-09] MEDS: OxyCODONE HCL/ACETAMINOPHEN 5-325 MG TABLET PO ONE (12:24)
[2025-02-09] MEDS: KETOROLAC TROMETHAMINE 60 MG/2 ML VIAL IM ONE (12:24)
[2025-02-09] MEDS: LORazepam 2 MG/ML VIAL IM ONE (12:24)
[2025-02-09] MEDS ORDERED: PERCT PO (12:36)
[2025-02-09] MEDS ORDERED: TRAM50TA5 PO (13:25)
[2025-02-09] MEDS ORDERED: OXYC-38 PO (13:40)
== END 2025-02-09 14:11 | disposition home or self-care (01) ==
LOC: EMS 10:53
DX: G89.29 Other chronic pain (principal); M54.50 Low back pain, unspecified; F20.9 Schizophrenia, unspecified; F31.9 Bipolar disorder, unspecified; I10 Essential (primary) hypertension; F10.20 Alcohol dependence, uncomplicated; F17.210 Nicotine dependence, cigarettes, uncomplicated; F11.90 Opioid use, unspecified, uncomplicated; Z98.890 Other specified postprocedural states; Z86.718 Personal history of other venous thrombosis and embolism; Z88.5 Allergy status to narcotic agent; Z79.899 Other long term (current) drug therapy; Y90.9 Presence of alcohol in blood, level not specified
CPT/HCPCS: 99284; 96372; J1885; J2060